=== PATIENT | female | born 1955 | race Caucasian/White ===

== ENCOUNTER 2021-05-30 09:32 | Inpatient (IN) | payer MEDICARE ==
[~2021-05-30] VITALS: Ht 170.2 cm; Wt 100.5 kg
[~2021-05-30 09:32] MED LIST: Roxicodone5 MG PO
[2021-05-30 12:51] LABS: BASOPHILS ABSOLUTE AUTO 0.03 K/mm3 (0.00-0.23); BASOPHILS PERCENT AUTO 1 % (0-2); EOSINOPHILS ABSOLUTE AUTO 0.03 K/mm3 (0.00-0.68); EOSINOPHILS PERCENT AUTO 1 % (0-6); Hematocrit 47.5 % (33.0-51.0); Hemoglobin 16.5 g/dL (11.5-16.0); IMMATURE GRAN ABSOLUTE AUTO 0.03 K/mm3 (0.00-0.10); IMMATURE GRAN PERCENT AUTO 1 % (0-1); LYMPHOCYTES ABSOLUTE AUTO 1.15 K/mm3 (0.84-5.20); LYMPHOCYTES PERCENT AUTO 18 % (21-46); MONOCYTES ABSOLUTE AUTO 0.55 K/mm3 (0.16-1.47); MONOCYTES PERCENT AUTO 8 % (4-13); Mean Corpuscular HGB 33.5 pg (26.0-34.0); Mean Corpuscular HGB Conc 34.7 g/dL (31.5-36.5); Mean Corpuscular Volume 96 fL (80-100); NEUTROPHILS ABSOLUTE AUTO 4.78 K/mm3 (1.96-9.15); NEUTROPHILS PERCENT AUTO 73 % (41-73); RDW Coefficient Variation 13.8 % (11.7-14.2); RDW Standard Deviation 49.9 fL (35.1-46.3); Red Blood Cell Count 4.93 M/mm3 (3.80-5.20); White Blood Cell Count 6.57 K/mm3 (4.00-11.30)
[2021-05-30 12:54] LABS: Alanine Aminotransfer (ALT/SGP 28 U/L (12-78); Albumin, Blood 4.1 g/dL (3.4-5.0); Albumin/Globulin Ratio 1.1 (0.8-1.8); Alk Phos 91 U/L (50-136); Anion Gap 10 mmol/L (6-16); Aspartate Aminotrans (AST/SGOT 47 U/L (12-37); Bilirubin, Total 1.9 mg/dL (0.1-1.0); Blood Urea Nitrogen 18 mg/dL (8-24); Bun/Creatinine Ratio 23.7 (12.0-20.0); CO2, Blood 25 mmol/L (21-32); Calcium, Blood 9.9 mg/dL (8.5-10.1); Chloride, Blood 98 mmol/L (98-108); Creatinine, Blood 0.76 mg/dL (0.40-1.00); Globulin, Blood 3.9 g/dL (2.2-4.0); Glomerular Filtration Rate >60 (60-); Glucose, Blood 136 mg/dL (70-99); Potassium, Blood 4.1 mmol/L (3.5-5.5); Sodium, Blood 133 mmol/L (136-145)
[2021-05-30 13:11] LABS: Platelet Count 194 K/mm3 (150-400)
[2021-05-30 13:11] LABS: Influenza A, PCR NEGATIVE (NEGATIVE); Influenza B, PCR NEGATIVE (NEGATIVE); Resp Syncytial Virus, PCR NEGATIVE (NEGATIVE); SARS-Cov-2 (COVID-19) PCR, MMC NEGATIVE (NEGATIVE)
--- NOTE | 2021-05-30 16:54 | NUR ---
PT. ADMITTED TO ROOM #215 AT 1545 FROM ER VIA RNEY. ABLE TO GET INTO BED, MOVES VERY SLOWLY AND CAREFULLY DUE TO LEFT ARM DISCOMFORT. SLING IN PLACE. CMS INTACT LEFT HAND , L ARM BRUISING ON SHOULDER, UPPPER ARM AND SHOULDER SHAPE CHANGES PT. MOVES. RATED PAIN 6/10, ROXICODONE GIVEN ALONG WITH LOPRESSOR. UPON ARRIVAL BP 180/137 HR 113. ANOTHER BP DONE AND 150OVER 134, HR 110. AFTER LOPRESSOR AND SINDHU GIVEN PT. BLOOD PRESSURE NOW 147/110, HR 92, PAIN IS 3/3 AND AT AN ACCEPTABLE LEVEL. IV R AC PATENT AND FLUSHES EASILY, DRSG. INTACT. DISCUSSED MEDICAL HX WITH PATIENT, STATES SHE KNOWS HER BLOOD PRESSURE IS HIGH AND IRREGULAR BUT HAS NOT BEEN TAKING ANY MEDICATION. SHE STATES SHE QUIT SMOKING THIS LAST APR 2021. PATIENT EDUCATION ON BLOOD PRESSURE AND IMPORTANCE OF TAKING PRESCRIBED MEDICATION. PATIENT VERBALIZE UNDERSTANDING.
[2021-05-31 05:10] LABS: Hematocrit 42.4 % (33.0-51.0); Hemoglobin 14.6 g/dL (11.5-16.0); Mean Corpuscular HGB 33.9 pg (26.0-34.0); Mean Corpuscular HGB Conc 34.4 g/dL (31.5-36.5); Mean Corpuscular Volume 98 fL (80-100); Mean Platelet Volume 9.9 fL (9.1-12.4); Platelet Count 200 K/mm3 (150-400); RDW Coefficient Variation 13.5 % (11.7-14.2); RDW Standard Deviation 49.2 fL (35.1-46.3); Red Blood Cell Count 4.31 M/mm3 (3.80-5.20); White Blood Cell Count 6.15 K/mm3 (4.00-11.30)
--- NOTE | 2021-05-31 05:22 | NUR ---
SHIFT SUMMARY PT ER ADMIT YESTEDAY AFTERNOON FOR LEFT HUMERAL FRACTURE AFTER SUSTAINING GLF AT HOME AFTER TRIPPING OVER A RUG. LEFT SHOULDER IS SEVERELY BRUISED AND DISCOLORED. ARM IS IN SLING, PT DENIES N/T IN LUE. PAIN WELL CONTROLED WITH OXYCODONE AND TYLENOL. MEDICATED X1 FOR NAUSEA. PT HYPETENSIVE, BUT VITALS THIS SHIFT HAVE NOT BEEN OUTSIDE OF PT NORM. ATTENDING AWARE OF PT HYPERTENSION PER NOTES. PT AFIB ON TELE, RATE CONTROLLED. ORTHO TO CONSULT ON PT TODAY, POSSIBLE SURGERY. PT HAS BEEN NPO SINCE MIDNIGHT. IVF INFUSING, BED IN LOWEST POSITION, CALL LIGHT WITHIN REACH.
[2021-05-31 05:43] LABS: Anion Gap 9 mmol/L (6-16); Blood Urea Nitrogen 24 mg/dL (8-24); Bun/Creatinine Ratio 36.5 (12.0-20.0); CO2, Blood 24 mmol/L (21-32); Calcium, Blood 9.1 mg/dL (8.5-10.1); Chloride, Blood 99 mmol/L (98-108); Creatinine, Blood 0.66 mg/dL (0.40-1.00); Glomerular Filtration Rate >60 (60-); Glucose, Blood 115 mg/dL (70-99); Potassium, Blood 3.5 mmol/L (3.5-5.5); Sodium, Blood 132 mmol/L (136-145)
--- NOTE | 2021-05-31 10:54 | NUR ---
Pt. is sitting up in chair and joyfully welcomes my visit. Facilitate a life review and consider pts. blair background. Pt. is interested in the Advance Directive Info material. As rapport was being devloped, spouse arrived. Talked through the material. Pt. and spouse randy displayed evidence of interest and agreement with the process. Pt. verbalized gratitude for the accident as it will force her to consider making better life/health choices. Listen empathetically. Prayed with with Pt. and Spouse. Pt. verbalized gratitude for the prayer and the spiritual care visit.
--- NOTE | 2021-05-31 15:44 | NUR ---
DR. MARTINEZ IN TO SEE PT. TODAY. NO SURGERY SCHEDULED. PATIENT EATING AND IS NO LONGER NPO. DR. OCONNELL INSTRUCTED TO STOP IVF WHILE PT. EATING/DRINKING. IS TO BE NPO AFTER MN TONIGHT UNTIL DR. HERRERA SEE PT. TOMORROW. IN TO VISIT PT. TODAY. STATES ONE ROXICODONE EFFECTIVE FOR L ARM RELIEF. STATES HER LEFT HAND IS "MOVING BETTER" TODAY. CMS INTACT.
--- NOTE | 2021-05-31 22:29 | NUR ---
TELE CHANGES CALL FROM [employer] AROUND 2200 THAT PT HAD A 7 BEAT RUN OF V-TACH WITH A RATE OF 170. PT WAS JUST SITTING UP IN BED WATCHING TV WITHOUT DISTRESS. CALL FROM [employer] AGAIN SHORTLY AFTER THAT PT HAD SOME ST CHANGES. PT IS DENYING CHEST PAIN OR PRESSURE. NO NAUSEA OR VOMITTING. EKG PERFORMED. DR. DILLON CALLED AND NOTIFIED OF TELE CHANGES AND EKG RESULTS. ORDER RECEIVED FOR 25 MG OF METOPROLOL BID, START FIRST DOSE NOW AND TROPONIN. ORDERS PLACED. WILL CONTINUE TO MONITOR.
--- NOTE | 2021-06-01 04:07 | NUR ---
SHIFT SUMMARY PT IS GETTING A SECOND OPINION FROM DR. MATA TODAY AFTER SPEAKING WITH DR. MARTINEZ YESTERDAY. THERE IS NO SCHEDULED SURGERY AT THIS TIME. PT HAS BEEN NPO SINCE MIDNIGHT JUST IN CASE OF SURGERY TODAY. PT LEFT ARM REMAINS SPLINTED. BRUISING TO LEFT SHOULDER HAS IMPROVED SOME, PAIN WITH MOVEMENT. MEDICATED PER EMAR. PT DENIES N/T IN LUE. ARMS REMAINS SPLINTED. PT DID HAVE SOME CHANGES ON TELE THIS SHIFT. ST CHANGES PER WHITING MACHINE OPERATOR KALEN, WELL A 6 BEAT RUN OF VTACH RATE 170'S. PT ASYMPTOMATIC, DENIES CHEST PAIN. EKG DONE, AND TROPONIN ORDERED. TROPONIN WNL. DR. DILLON WAS MADE AWARE OF TELE CHANGES AND CONTINUED HYPERTENSION. PT VERY ANXIOUS ABOUT CURRENT ILLESS, SUPORT PROVIDED. PT CONTINUES TO AMBULATE WELL WITH 1 PA TO THE BSC. BED IN LOWEST POSITION, CALL LIGHT WITHIN REACH.
[2021-06-01 04:54] LABS: Hematocrit 44.3 % (33.0-51.0); Hemoglobin 15.2 g/dL (11.5-16.0); Mean Corpuscular HGB 33.7 pg (26.0-34.0); Mean Corpuscular HGB Conc 34.3 g/dL (31.5-36.5); Mean Corpuscular Volume 98 fL (80-100); Mean Platelet Volume 9.6 fL (9.1-12.4); Platelet Count 220 K/mm3 (150-400); RDW Coefficient Variation 13.4 % (11.7-14.2); RDW Standard Deviation 48.8 fL (35.1-46.3); Red Blood Cell Count 4.51 M/mm3 (3.80-5.20); White Blood Cell Count 7.14 K/mm3 (4.00-11.30)
[2021-06-01 05:15] LABS: Anion Gap 9 mmol/L (6-16); Blood Urea Nitrogen 22 mg/dL (8-24); Bun/Creatinine Ratio 30.3 (12.0-20.0); CO2, Blood 25 mmol/L (21-32); Calcium, Blood 9.4 mg/dL (8.5-10.1); Chloride, Blood 99 mmol/L (98-108); Creatinine, Blood 0.73 mg/dL (0.40-1.00); Glomerular Filtration Rate >60 (60-); Glucose, Blood 132 mg/dL (70-99); Potassium, Blood 3.9 mmol/L (3.5-5.5); Sodium, Blood 133 mmol/L (136-145)
--- NOTE | 2021-06-01 10:27 | NUR ---
PT SBP IN 200'S. INSERTED NEW IV SINCE OLD ONE WAS INFILTRATED AND GAVE IV LABETOLOL. WILL RECHECK IN 30 MINS. PT C/O GAS, EPIGASTRIC PAIN, AND NAUSEA. DENIES CHEST PAIN/PRESSURE/PALPITATIONS. AFLUTTER IN 90'S ON TELE.
--- NOTE | 2021-06-01 15:03 | NUR ---
PT ARRIVED TO ICU 11 VIA WC. PT ABLE TO TRANSFER SELF TO BED WITH 1 PERSON ASSISTANCE, BUT REQUIRES 2 PERSON ASSISTANCE TO GET FEET INTO BED AND MOVE AROUND. PT HAS SIGNIFICANT L ARM PAIN WHEN MOVING AROUND. PT HAS SLING VERY LOOSELY ON L ARM AND THE ARM DOES NOT APPEAR STABLE WITH BULGES APPEARING PT MOVES. L ARM IS SWOLLEN AND PURPLE. L FINGERS ARE PINK, WARM, RADIAL PULSE STRONG. DR. OCONNELL CALLED FOR PAIN AND ANXIETY CONTROL PT SAYS SHE USED TO TAKE XANAX FOR ANXIETY. PT'SSBP CAME DOWN TO THE 180S WITH FENTANYL ADMIN AND PT SAID HER NAUSEA FELT BETTER AT THAT POINT. PT'S PAIN AND BP WENT BACK UP SOON SHE MOVED. CALLED DR. MATA TO SEE ABOUT STABILIZING PT'S ARM AND HE SAID HE WOULD COME BY AND PUT ON A SPLINT. PT VERY ANXIOUS ABOUT THIS SO ATIVAN GIVEN AND PT RELAXED, BUT SBP STILL 224MMHG. GEE MARTINEZ PLACING POWERGLIDE CURRENTLY AND THEN WILL START NICARDIPINE. PT'S AT THE BEDSIDE AND HAS BEEN VERY SUPPORTIVE.
--- NOTE | 2021-06-01 17:06 | NUR ---
SHIFT SUMMARY PT WAS TRANSFERRED TO ICU TODAY FOR BP CONTROL. DR. MATA CAME BY AND PLACED SPLINT ON LA AND PT HAS BEEN MUCH MORE COMFORTABLE SINCE. SBP HAS BEEN 150-170S, BUT DIASTOLIC HAS REMAINED AROUND 130MMHG. SPOKE WITH DR. OCONNELL WHO GAVE ORDER FOR THE NICARDIPINE TO BE GIVEN FOR SBP ABOVE 180MMHG AND TO ADD LISINOPRIL FOR THE DIASTOLIC, SEE ORDERS. HR IN THE 90-LOW 100S, AFIB. PT IS STILL HAVING SOME NAUSEA. SHE IS TOELRATING WATER, TRIED SIPS OF BROTH AND CRACKERS. LUNGS ARE CLEAR, RA. L ARM HAS 2+ EDEMA AND ARM IS PURPLE. PT'S SPENT MOST OF THE TIME AT THE BEDSIDE, BUT HAS NOW TAKEN A BREAK SO PT CAN REST. CONTINUING TO MONITOR.
--- NOTE | 2021-06-01 17:55 | NUR ---
Pt. is awake and in bed. Pt. welcomes my visit. Re-establish rapport. Pt. is pleasant, and reflected on some moments of fear she experienced overnight. Listen empathetically. Through pastoral care and therapeutic questioning, pt. displayed evidence of renewed hope and restored blair. Prayed with Pt. Pt. verbalized gratitude for the spiritual care visit and requested that this anthropology department chair return.
--- NOTE | 2021-06-01 20:55 | NUR ---
SHIFT ASSESSMENT PT ALERT AND ORIENTED, SITTING UPRIGHT IN BED. A-FIB ON THE MONITOR. PT REMAINS HYPERTENSIVE, NICARDIPINE GTT TITRATED DOWN TO 3MG/HR c SBP <180 AT THIS TIME. PT C/O MODERATE PAIN IN THE L ARM AND NAUSEA, MEDICATED WITH PRN ZOFRAN AND PO PAIN MEDS. L SLING PLACED OVER SPLINT. L ARM REMAINS DISCOLORED AND SWOLLEN, STRONG RADIAL PULSE, SENSATION OF DISTAL EXTREMITIES INTACT. PT TO BEDSIDE COMMODE WITH TAX INTERN. WILL CONTINUE TO MONITOR CLOSELY.
--- NOTE | 2021-06-02 07:29 | NUR ---
SHIFT SUMMARY PT REMAINS ALERT AND ORIENTED. ABLE TO SLEEP FOR PART OF THE NIGHT. NICARDIPINE GTT ON T/O THE NIGHT, CURRENTLY AT 3MG/HR. NO CHANGES TO STATUS OF L ARM, REMAINS SWOLLEN AND DISCOLORED, NO LOSS OF SENSATION. SLING AND SPLINT IN PLACE. PT TOLERATING USE OF BEDSIDE COMMODE, DENIES DIZZINESS, JUST NEEDS REMINDING TO NOT USE L ARM. NO OTHER ACUTE CHANGES, REPORT GIVEN TO ONCOMING NURSE.
--- NOTE | 2021-06-02 08:05 | NUR ---
took over care of pt at 0700, pt resting on RA, nicardicpine drip running at 2.5
--- NOTE | 2021-06-02 18:02 | NUR ---
SHIFT SUMMARY PT ARRIVED TO THE FLOOR VIA WC IN STABLE CONDITION FROM ICU 11, VSS UPON ARRIVAL, DENIED PAIN AT THAT TIME, REPORTED SOME MILD TINGLING IN L HAND BUT STATED THAT WAS NORMAL FOR HER. DISTAL CIRCULATION L HAND GOOD, CAP REFIL < 3 SECONDS, PULSE PRESENT. NO ACUTE EVENTS SINCE ARRIVAL, WILL CTM AND REPORT TO NOC RN.
--- NOTE | 2021-06-03 06:26 | NUR ---
SHIFT SUMMARY PT AOX4. ADMITTED FOR NONSURGICAL LEFT HUMERUS FX. TRANSFERED FROM ICU DUE TO HTN AND AFIB. PT'S BP IS WELL CONTROLLED OVERNIGHT. MILDLY ELEVATED AT THE BEGINNING OF SHIFT. MEDICATED FOR PRN LOPRESSOR 12.5MG. BP IMPROVED THIS MORNING. PT DENIES CHEST PAIN AND SOB. L ARM WITH SLING AND EFREN WRAPPED. L HAND REMAIN SWOLLEN OVERNIGHT BUT PT DENIES NUMBNESS AND TINGLING. CAP REFILL AT 3SEC.D PULSES IS STRONG. ABLE TO MOVE L FINGERS/HAND. AMBULATES IN THE BATHROOM WITH SBA. PT HAS BEEN STEADY GETTING UP DENIES DIZZINESS/LIGHT-HEADEDNESS. PT ALSO TOLERATING PO INTAKE. DECREASE APPETITE, FELT MILDLY NAUSEATED AT THE BEGINNING OF SHIFT. OFFERED ZOFRAN BUT PT REFUSED. NO NAUSEA NOTED AFTER 1 EPISODE. TELE IN PLACED REMAINED AFIB ON 90'S. CALL LIGHT WITHIN REACH. WILL PROVIDE REPORT TO ONCOMING NURSE.
--- NOTE | 2021-06-03 15:37 | NUR ---
SHIFT SUMMARY S/P L HUMERAL FX, A/OX4, VSS, TOLERATING PO, PAIN MANAGED PER EMAR, AMBULATES INDEPENDENTLY, UPDATED IMAGING ORDERED FOR L ARM PER ORTHO, PT HAD SOME MILD NAUSEA JUST PRIOR TO SHIFT START WHICH RESOLVED WITHOUT MEDICATIONS PT STATED SHE DIDN'T WANT ANY AT THAT TIME, DENIED NAUSEA T/O THIS SHIFT. NO ACUTE EVENTS TODAY, CALL LIGHT IN REACH, WILL CTM AND REPORT TO ONCOMING NOC RN.
--- NOTE | 2021-06-04 03:26 | NUR ---
SHIFT SUMMARY: PT. AOX4, AMBULATES TO THE BATHROOM ON SBA. L ARM WITH ORTHO GLASS & ACEWRAP C/D/I. USES SLING WHEN UP. C/O PAIN MEDICATED PER EMAR. SLEEPING WELL, NO ACUTE CHANGES NOTED. ABLE TO MAKE NEEDS KNOWN, USES CALL LIGHT.
--- NOTE | 2021-06-04 18:35 | NUR ---
PATIENT ATE 100% DINNER AND BROTHER BILL IN TO VISIT FOR 10 MINUTES. PATIENT STATES HE IS READY TO GO HOME. EXPLAINED TO PATIENT THAT A DOCTOR WILL BE IN TO SEE HIM . WATCHING TV AT THIS TIME.
--- NOTE | 2021-06-04 18:38 | NUR ---
PATIENT UP IN CHAIR MOST OF DAY. REQUEST PAIN MED AT 1000 THIS A.M. AND AT THIS TIME NOW. LEFT HAND SWOLLEN, NO CHANGE, DR. PAUL. IN TO VISIT TODAY. MOVED TO ROOM 217 AT AROUND 1700.BELONGINGS SENT WITH PATIENT.
--- NOTE | 2021-06-05 03:27 | NUR ---
SHIFT SUMMARY: PT.AOX4, C/O PAIN MEDICATED PER EMAR. AMBULATES TO BATHROOM ON SBA. L ARM WITH ORTHO GLASS & ACEWRAP PLACED ON PILLOW WHEN IN BED, SLING ON WHEN UP. NO ACUTE CHANGES NOTED, WILL CONTINUE TO MONITOR.
[2021-06-05] MEDS ORDERED: OXYC5 PO (11:04)
[2021-06-05] MEDS ORDERED: DOCUZEN 8.6-501 EACH PO (11:05)
[2021-06-05] MEDS ORDERED: Acetaminophen650 M1 PO (11:05)
[2021-06-05] MEDS ORDERED: HYDCHL25 PO (11:06)
[2021-06-05] MEDS ORDERED: LISI20 PO (11:06)
[2021-06-05] MEDS ORDERED: METO50ER PO ×2 (11:07→11:12)
[2021-06-05] MEDS ORDERED: LORA.5 PO (11:07)
[2021-06-05] MEDS ORDERED: VITAMIN D5000 UNIT PO (11:08)
[2021-06-05] MEDS ORDERED: MIRALAX1711 PO (11:08)
[2021-06-05] MEDS ORDERED: XARELTO20 MG PO (11:09)
[2021-06-05] MEDS ORDERED: LISINOPRIL-HCT1 EACH PO (11:12)
--- NOTE | 2021-06-05 13:24 | NUR ---
DC'D HOME, DC INSTRUCTIONS GIVEN, VERBALIZED UNDERSTANDING, PT DC'D W/ ARM IN SLING.
--- NOTE | 2021-06-06 14:02 | NUR ---
Received referral from nurse wound care center consultant (Rosette Aguilar) on 06/05/2021. Patient was admitted to [facility] on 05/30/2021 due to left humeral fracture. Patient discharged 06/05/2021 with orders for home health and elected [place]. Attempted to reach patient on 06/05/2021 at 1529. Unfortunately patient did not answer. Left voicemail asking patient to return this proposal lead writer's call. Second attempted to reach patient on at 1040. Unfortunately patient did not answer. Left voicemail asking patient to return this proposal lead writer's call. Third and final attempted to reach patient on 06/06/2021 at 1400. Unfortunately patient did not answer. Left voicemail asking patient to return this proposal lead writer's call. No further interventions required. Bailey Malhotra Referral Liaison
[2021-06-08] MEDS ORDERED: LISI20 PO (12:46)
[2021-06-08] MEDS ORDERED: AMOCLA875 PO (12:48)
[2021-06-08] MEDS ORDERED: VISBIOME 112.51 EACH PO (12:48)
[2021-06-08] MEDS ORDERED: Percocet 5-3251 EACH PO (12:49)
== END 2021-06-05 13:15 | disposition home health service (06) | DRG 563 ==
LOC: ER 09:32 → ICUW 14:29 → SURS 14:29 → ICUW 06-01 13:36 → SURS 06-02 16:23
PROVIDERS: Internal Medicine; Nurse Practitioner Acute Care; Physician Assistant; ADMIT Internal Medicine
DX: S42.292A Other displaced fracture of upper end of left humerus, initial encounter for closed fracture (principal); Z20.822 Contact with and (suspected) exposure to COVID-19; I48.91 Unspecified atrial fibrillation; E66.01 Morbid (severe) obesity due to excess calories; F41.9 Anxiety disorder, unspecified; Z68.39 Body mass index [BMI] 39.0-39.9, adult; I10 Essential (primary) hypertension; Z91.14 Patient's other noncompliance with medication regimen; Z28.21 Immunization not carried out because of patient refusal; Z88.5 Allergy status to narcotic agent; Z87.891 Personal history of nicotine dependence; W19.XXXA Unspecified fall, initial encounter
CPT/HCPCS: 0241U; 36415; 71046; 73060; 80048; 80053; 83036; 83690; 83735; 83880; 84443; 84484; 85025; 85027; 93005; 93010; 93306; 96374; 99284-25; A9270; C1751; C9113; J2060; J2405; J3010; J7030; J7050

== ENCOUNTER 2023-12-26 10:39 | Inpatient (IN) | payer OTHER ==
[~2023-12-26] VITALS: Ht 170.2 cm; Wt 103.4 kg
[2023-12-26] VITALS (26 sets, daily range): BP systolic 67–115; BP diastolic 38–86
[~2023-12-26 10:39] MED LIST changes: +AMOCLA875 PO; +Acetaminophen650 M1 PO; +Ativan0.5 MG PO; +DOCUZEN 8.6-501 EACH PO; +HYDCHL25 PO; +LISI20 PO; +LISINOPRIL-HCT1 EACH PO; +LORA.5 PO; +METO50ER PO; +MIRALAX1711 PO; +OXYC5 PO; +Percocet 5-3251 EACH PO; +VISBIOME 112.51 EACH PO; +VITAMIN D5000 UNIT PO; +XARELTO20 MG PO
[2023-12-26] MEDS ORDERED: NS 1,000 ML IV ONE ×3 (11:05→14:50)
[2023-12-26] MEDS ORDERED: Piperacillin/Tazobactam Sod 3.375 GM in NS 100 ML IV ONE (11:55)
[2023-12-26] MEDS ORDERED: Vancomycin HCL 2,000 MG in NS 520 ML IV ONE (11:55)
[2023-12-26 12:05] LABS: Source, Urine Foley catheter
[2023-12-26 12:07] LABS: Appearance, Urine Clear (Clear); Bilirubin, Urine Neg (Neg); Blood, Urine Neg (Neg); Color, Urine Yellow (P-Yellow); Glucose Qualitative, Urine Neg (Neg); Ketones, Urine Neg (Neg); Leukocyte Esterase, Urine Neg (Neg); Nitrite, Urine Neg (Neg); Protein, Urine 2+ (Neg); Urobilinogen, Urine NORM (Normal)
[2023-12-26 12:21] LABS: Magnesium, Blood 2.3 mg/dL (1.6-2.4)
[2023-12-26 12:29] LABS: Albumin, Blood 2.9 g/dL (3.4-5.0); Albumin/Globulin Ratio 0.8 (0.8-1.8); Bilirubin, Total 1.3 mg/dL (0.1-1.0); Bun/Creatinine Ratio 45.1 (12.0-20.0); Calcium, Blood 8.5 mg/dL (8.5-10.1); Creatinine, Blood 1.82 mg/dL (0.40-1.00); Globulin, Blood 3.5 g/dL (2.2-4.0); Total Protein, Blood 6.4 g/dL (6.4-8.2)
[2023-12-26 12:30] LABS: Bacteria Rare /hpf; Red Blood Cells, Urine 0-2 /hpf (0-2); Squamous Epithelial Cells Few /hpf (Few); White Blood Cells, Urine 0-2 /hpf (0-5)
[2023-12-26] MEDS ORDERED: NS 1,000 ML IV SCH ×2 (12:45→14:50)
[2023-12-26 12:47] LABS: BASOPHILS ABSOLUTE AUTO 0.01 K/mm3 (0.00-0.23); BASOPHILS PERCENT AUTO 0 % (0-2); EOSINOPHILS ABSOLUTE AUTO 0.05 K/mm3 (0.00-0.68); EOSINOPHILS PERCENT AUTO 1 % (0-6); Hematocrit 47.5 % (33.0-51.0); Hemoglobin 17.8 g/dL (11.5-16.0); IMMATURE GRAN ABSOLUTE AUTO 0.07 K/mm3 (0.00-0.10); IMMATURE GRAN PERCENT AUTO 1 % (0-1); LYMPHOCYTES ABSOLUTE AUTO 1.13 K/mm3 (0.84-5.20); LYMPHOCYTES PERCENT AUTO 12 % (21-46); MONOCYTES ABSOLUTE AUTO 0.74 K/mm3 (0.16-1.47); MONOCYTES PERCENT AUTO 8 % (4-13); Mean Corpuscular HGB 33.5 pg (26.0-34.0); Mean Corpuscular Volume 90 fL (80-100); Mean Platelet Volume 9.6 fL (9.1-12.4); NEUTROPHILS PERCENT AUTO 79 % (41-73); Platelet Count 239 K/mm3 (150-400); RDW Coefficient Variation 12.5 % (11.7-14.2); RDW Standard Deviation 41.3 fL (35.1-46.3); Red Blood Cell Count 5.31 M/mm3 (3.80-5.20)
[2023-12-26 12:48] LABS: Mean Corpuscular HGB Conc 37.5 g/dL (31.5-36.5)
[2023-12-26] MEDS ORDERED: Aspirin 325 MG Tab PO ONE (13:15)
[2023-12-26 14:22] LABS: Bun/Creatinine Ratio 44.1 (12.0-20.0); Calcium, Blood 8.2 mg/dL (8.5-10.1); Creatinine, Blood 1.79 mg/dL (0.40-1.00); Potassium, Blood 3.2 mmol/L (3.5-5.5)
[2023-12-26] MEDS ORDERED: Magnesium Hydroxide Conc 10 ML UDC PO PRN (14:45)
[2023-12-26] MEDS ORDERED: FLU VACC TS2024-25(6MOS UP)/PF 45 MCG/0.5 ML SYRINGE IM SCH (14:45)
[2023-12-26] MEDS ORDERED: Ondansetron HCl 2 MG / ML 2ML Vial IV PRN (14:50)
[2023-12-26] MEDS ORDERED: Cefepime HCl 2,000 MG in NS 100 ML IV ONE (15:30)
--- NOTE | 2023-12-26 18:49 | NUR ---
ADMIT PT ARRIVED TO PCU 20 VIA SILVANA. PT ALERT, ABLE TO SAY THAT SHE IS IN THE HOSPITAL, BUT WAS UNABLE TO SAY THE YEAR. SHE IS EASILY CONFUSED AND DISTRACTED. LATER, WHEN SETTLING THE PT AND SHE WAS ABLE TO FOCUS SHE WAS ABLE TO SAY THE YEAR IS 20[birth year]. WHEN ASKED ABOUT THE WOUNDS ON HER LEGS THOUGH, SHE SAYS THAT THEY WEREN'T THERE THIS MORNING. PICTURES TAKEN OF OPEN AREAS ON BOTH SHINS. BOTH LEGS ARE PURPLE AND MOTTLED UP TO MID THIGH. UNABLE TO FIND DORSALIS PEDIS PULSE WITH DOPPLER, BUT POSTERIOR TIBIAL PULSES FOUND BILATERALLY WITH DOPPLER. RUIZ IN PLACE DRAINING SILKE COLORED URINE. PT 100% ON 4L/NC SO TITRATED DOWN TO 2L/NC. WILL REPORT TO ONCOMING SHIFT.
[2023-12-26] MEDS ORDERED: Albuterol 2.5 MG/3 ML VIAL INH PRN (19:40)
[2023-12-26] MEDS ORDERED: Albuterol 2.5 MG/3 ML VIAL INH SCH (19:45)
[2023-12-26] MEDS ORDERED: Lactobacil 2-S.Thermo-Bifido 1 1 Cap PO SCH (21:00)
[2023-12-26 21:08] LABS: Bun/Creatinine Ratio 47.6 (12.0-20.0); Calcium, Blood 8.6 mg/dL (8.5-10.1); Creatinine, Blood 1.47 mg/dL (0.40-1.00); Potassium, Blood 2.8 mmol/L (3.5-5.5)
--- NOTE | 2023-12-26 21:25 | NUR ---
ICU Tx: PATIENT WITH CONSISTENT MAPS <60, SYSTOLIC BLOOD PRESSURES IN THE 70'S MOST OF THE TIME, PATIENT A/O X 2-3. MOTTLED LOWER EXTREMES TO THE LEVEL OF THE KNEE. PATIENT STILL PRODUCING URINE, MULTIPLE MANUAL BLOOD PRESSURE PREFORMED AND 70'S SYSTOLIC AVERAGES, RESIDENT TO BEDSIDE >30 MINUTES. FINAL OK TO TRANSFER TO ICU. BEDSIDE REPORT OBTAINED NO QUESTIONS OR CONCERNS FROM SMALL MACHINE BINDERY OPERATOR AT TIME OF REPORT. REVENUE FIELD AUDITOR AND I TRANSFERRED PATIENT VIA BED ON 2L NC
[2023-12-26] MEDS ORDERED: Potassium Chloride 40 MEQ IV ONE (22:00)
[2023-12-26] MEDS ORDERED: Potassium Chl 20MEQ/Water100ML 100 ML IV SCH (22:05)
--- NOTE | 2023-12-26 23:00 | NUR ---
PT TRANSFER TO ICU 12: PT ARRIVED TO THE UNIT APPRO. 2114; REPORT RECIEVED FROM OPTIMIZATION CONSULTANT, JANEY. PT ARRIVED A&O X 2, CONFUSED BUT FOLLOWING DIRECTIONS. PT ABLE TO STATE AND MONTH/YEAR BUT STATED THAT SHE WAS AT HOME AND IN [place], [place]. AT TIMES PT IS HAVING AUDITORY/VISUAL HALLUCINATIONS AND THINKS SHE IS HEARING/SEEING FAMILY MEMBERS OR FRIENDS IN THE ROOM AND PRECEEDS TO TALK TO THEM; PT REORIENTED BUT BECOMES CONFUSED SHORTLY AFTER. CURRENTLY ON NC @ 2 LPM, SPO2 96< AND C/O SLIGHT SOB. AFIB ON MONITOR WITH HR 80-100, SBP 90'S, AND MAP 65<; LEVO GTT @ 4 MCG/MIN. CENTRAL LINE ACCESS IN J THAT IS PATENT; NS INFUSING @ 150 MLS/HR. ABD OBESE, SOFT AND NON-TENDER, AND +BT; PT TOLERATING PO INTAKE AT THIS TIME. RADIAL PULSE PALPABLE, POSTERIOR TIBIAL WITH DOPPLER. CHRONIC BLE WOUNDS, MOTTLING FROM FEET TO KNEES AND SKIN COOL TO TOUCH. PT ABLE TO SMITH AND FEEL SENSATION IN BLE. PT C/O PAIN IN BLE BUT IS MANAGABLE WITHOUT MEDS. LAC AND LH PIV THAT ARE PATENT AND SALINE LOCKED. ORAL CARE COMPLETED; PT HAS UPPPER DENTURES BUT THEY ARE AT HOME. BED LOWERED, CALL LIGHT IN REACH.
[2023-12-27] VITALS (89 sets, daily range): BP systolic 67–159; BP diastolic 35–99
[2023-12-27 05:37] LABS: Bun/Creatinine Ratio 49.5 (12.0-20.0); Calcium, Blood 8.1 mg/dL (8.5-10.1); Creatinine, Blood 1.01 mg/dL (0.40-1.00); Magnesium, Blood 1.9 mg/dL (1.6-2.4); Potassium, Blood 3.1 mmol/L (3.5-5.5)
[2023-12-27 05:53] LABS: BASOPHILS ABSOLUTE AUTO 0.02 K/mm3 (0.00-0.23); BASOPHILS PERCENT AUTO 0 % (0-2); EOSINOPHILS ABSOLUTE AUTO 0.02 K/mm3 (0.00-0.68); EOSINOPHILS PERCENT AUTO 0 % (0-6); Hematocrit 41.2 % (33.0-51.0); IMMATURE GRAN ABSOLUTE AUTO 0.07 K/mm3 (0.00-0.10); IMMATURE GRAN PERCENT AUTO 1 % (0-1); LYMPHOCYTES ABSOLUTE AUTO 0.68 K/mm3 (0.84-5.20); LYMPHOCYTES PERCENT AUTO 7 % (21-46); MONOCYTES ABSOLUTE AUTO 0.72 K/mm3 (0.16-1.47); MONOCYTES PERCENT AUTO 7 % (4-13); Mean Corpuscular Volume 90 fL (80-100); Mean Platelet Volume 9.5 fL (9.1-12.4); NEUTROPHILS ABSOLUTE AUTO 8.86 K/mm3 (1.96-9.15); NEUTROPHILS PERCENT AUTO 85 % (41-73); Platelet Count 211 K/mm3 (150-400); RDW Coefficient Variation 12.7 % (11.7-14.2); RDW Standard Deviation 42.2 fL (35.1-46.3); Red Blood Cell Count 4.58 M/mm3 (3.80-5.20); White Blood Cell Count 10.37 K/mm3 (4.00-11.30)
[2023-12-27 05:55] LABS: Hemoglobin 15.6 g/dL (11.5-16.0); Mean Corpuscular HGB 33.9 pg (26.0-34.0); Mean Corpuscular HGB Conc 37.1 g/dL (31.5-36.5)
[2023-12-27] MEDS ORDERED: Potassium Chl 20MEQ/Water100ML 100 ML IV STA (06:31)
--- NOTE | 2023-12-27 06:31 | NUR ---
SHIFT SUMMARY: NO ACUTE CHANGES OVERNIGHT; VSS THROUGHOUT THE NIGHT. PT REMAINS ON NC @ 2LPM. LEVO GTT @ 4 MCG/MIN. PT CONTINUES TO BE A&O X 2, CONFUSED BUT COOPERATIVE WITH CARE. GOOD URINE OUTPUT. NS @ 150 MLS/HR INFUSING THROUGH LIJ. BED LOWERED, CALL LIGHT IN REACH.
[2023-12-27] MEDS ORDERED: Potassium Chloride 20 MEQ TabCR PO ONE (08:00)
[2023-12-27] MEDS ORDERED: Cefepime HCl 2,000 MG in NS 100 ML IV SCH ×2 (08:00)
--- NOTE | 2023-12-27 08:07 | NUR ---
AM NOTE... ASSUMED CARE OF PT AT 0700, PT IS A&Ox4 WHICH IS IMPROVED FROM NOC SHIFT RN REPORT. PT WAS ON LEVOPHED AT 4MCG/MIN TO KEEP MAPS>65 THIS WAS TITRATED OFF BY 0800. PT WAS ON 2L NC WITH O2 SATS>95% THIS WAS ALSO TITRATED OFF BY 0800. PT IS IN AFIB IN THE 80'S-90'S. THE PT'S BLE ARE BRIGHT RED WITH DUSKY NAIL BEDS, BLE ARE WARM TO THE TOUCH WITH MOTTLING UP HER BLE TO HER UPPER THIGHS. LEFT D. PEDIS PULSE FOUND WITH DOPPLER, LEFT P. TIBIAL ABSENT. RIGHT D. PEDIS ABSENT RIGHT P. TIBIAL FOUND WITH DOPPLER. PT'S L/S SLIGHTLY COARSE IN THE UPPER LOBES DIM T/O. PT C/O OF "SLIGHT DISCOMFORT" TO HER BLE BUT DENIES PAIN. 0800 DR. VALENCIA AT THE BEDSIDE TO ASSESS THE PT, NEW ORDERS FOR NPO AND DR. PANTOJA CONSULT. WILL CONTINUE TO MONITOR.
[2023-12-27 11:48] LABS: Bun/Creatinine Ratio 47.2 (12.0-20.0); Calcium, Blood 7.9 mg/dL (8.5-10.1); Creatinine, Blood 0.89 mg/dL (0.40-1.00); Potassium, Blood 3.4 mmol/L (3.5-5.5)
[2023-12-27] MEDS ORDERED: Thiamine HCl 100 MG in NS 50 ML IV SCH (12:00)
[2023-12-27] MEDS ORDERED: Vancomycin HCL 1,250 MG in NS 250 ML IV SCH (12:00)
[2023-12-27] MEDS ORDERED: Heparin Sodium 1000 Units/ML 10ML MDV ONE ×2 (14:40→16:00)
[2023-12-27] MEDS ORDERED: NS 250 ML IV ONE (14:41)
[2023-12-27] MEDS ORDERED: NS 1,000 ML IV ONE ×2 (14:41→15:06)
[2023-12-27] MEDS ORDERED: NS 500 ML IV ONE (14:41)
[2023-12-27] MEDS ORDERED: Midazolam HCl 1MG / ML 2ML Vial ONE (15:06)
[2023-12-27] MEDS ORDERED: FentaNYL Citrate 50 MCG/ML 2 ML Injection ONE (15:06)
[2023-12-27] MEDS ORDERED: CEPH500 PO (15:27)
[2023-12-27] MEDS ORDERED: HydrALAZINE HCl 20 MG / ML 1ML Vial ONE (15:29)
[2023-12-27] MEDS ORDERED: METO50 PO (15:33)
[2023-12-27] MEDS ORDERED: NS 100 ML IV ONE (15:33)
[2023-12-27] MEDS ORDERED: SERT25 PO (15:34)
[2023-12-27] MEDS ORDERED: ENTRESTO 24 MG1 EACH PO (15:35)
[2023-12-27] MEDS ORDERED: WARF5 PO (15:35)
[2023-12-27] MEDS ORDERED: HYDCHL25 PO (15:36)
[2023-12-27] MEDS ORDERED: Nitroglycerin 2 MG/20 ML BTL ONE (15:38)
[2023-12-27] MEDS ORDERED: SILVADENE20 G8 TOP (15:39)
[2023-12-27 18:03] LABS: Albumin, Blood 2.6 g/dL (3.4-5.0); Anion Gap 14 mmol/L (3-11); Blood Urea Nitrogen 38 mg/dL (8-24); Bun/Creatinine Ratio 42.3 (12.0-20.0); CO2, Blood 20 mmol/L (21-32); Calcium, Blood 8.4 mg/dL (8.5-10.1); Chloride, Blood 99 mmol/L (98-108); Glomerular Filtration Rate 70 (60-); Glucose, Blood 125 mg/dL (70-99); Phosphorus, Blood 1.4 mg/dL (2.5-4.9); Potassium, Blood 3.6 mmol/L (3.5-5.5); Sodium, Blood 129 mmol/L (136-145)
[2023-12-27 18:09] LABS: Bun/Creatinine Ratio 42.6 (12.0-20.0); Calcium, Blood 8.4 mg/dL (8.5-10.1); Creatinine, Blood 0.89 mg/dL (0.40-1.00); Potassium, Blood 3.6 mmol/L (3.5-5.5)
--- NOTE | 2023-12-27 18:30 | NUR ---
SHIFT SUMMARY.... NO ACUTE NEGATIVE CHANGES NOTED THIS SHIFT. PT WENT TO THE [facility] AND RETURNED WITH A RIGHT GROIN SITE, THE SITE HAD A SMALL AMOUNT OF OOZING NOTED, NO HEMATOMA NOTED ON ASSESSMENT. WHEN THE PT RETURNED FROM THE FORKLIFT TRUCK MECHANIC PT'S HR INCREASED TO AFIB IN THE 100'S-120'S BP STABLE OFF OF LEVOPHED. RUIZ IS PATENT AND DRAINING TO GRAVITY. [facility] ONTINUE TO MONITOR UNTIL REPORT IS GIVEN TO ONCOMING RN.
[2023-12-27] MEDS ORDERED: Metoprolol Tartrate 1 MG/ML 5 ML VIAL IV PRN (19:30)
[2023-12-27] MEDS ORDERED: Sodium Phosphate 20 MM in NS 500 ML IV SCH (20:00)
[2023-12-27] MEDS ORDERED: Arginine/Glutamine/Calcium Hmb 1 Packet PO SCH (21:00)
[2023-12-27 23:25] LABS: Calcium, Blood 8.1 mg/dL (8.5-10.1); Creatinine, Blood 0.81 mg/dL (0.40-1.00); Potassium, Blood 3.6 mmol/L (3.5-5.5)
[2023-12-28] VITALS (64 sets, daily range): BP systolic 80–145; BP diastolic 38–112
[2023-12-28 04:26] LABS: BASOPHILS ABSOLUTE AUTO 0.01 K/mm3 (0.00-0.23); BASOPHILS PERCENT AUTO 0 % (0-2); EOSINOPHILS ABSOLUTE AUTO 0.09 K/mm3 (0.00-0.68); EOSINOPHILS PERCENT AUTO 1 % (0-6); Hematocrit 38.2 % (33.0-51.0); Hemoglobin 13.8 g/dL (11.5-16.0); IMMATURE GRAN ABSOLUTE AUTO 0.06 K/mm3 (0.00-0.10); IMMATURE GRAN PERCENT AUTO 1 % (0-1); LYMPHOCYTES ABSOLUTE AUTO 0.57 K/mm3 (0.84-5.20); LYMPHOCYTES PERCENT AUTO 7 % (21-46); MONOCYTES ABSOLUTE AUTO 0.75 K/mm3 (0.16-1.47); MONOCYTES PERCENT AUTO 9 % (4-13); Mean Corpuscular HGB 33.8 pg (26.0-34.0); Mean Corpuscular HGB Conc 36.1 g/dL (31.5-36.5); Mean Corpuscular Volume 94 fL (80-100); Mean Platelet Volume 9.8 fL (9.1-12.4); NEUTROPHILS ABSOLUTE AUTO 7.35 K/mm3 (1.96-9.15); NEUTROPHILS PERCENT AUTO 83 % (41-73); Platelet Count 166 K/mm3 (150-400); RDW Coefficient Variation 13.2 % (11.7-14.2); RDW Standard Deviation 45.3 fL (35.1-46.3); Red Blood Cell Count 4.08 M/mm3 (3.80-5.20); White Blood Cell Count 8.83 K/mm3 (4.00-11.30)
[2023-12-28 04:40] LABS: Bun/Creatinine Ratio 37.8 (12.0-20.0); Calcium, Blood 8.4 mg/dL (8.5-10.1); Creatinine, Blood 0.79 mg/dL (0.40-1.00); Phosphorus, Blood 2.1 mg/dL (2.5-4.9); Potassium, Blood 3.6 mmol/L (3.5-5.5)
[2023-12-28] MEDS ORDERED: Potassium Phosphate Dibasic 30 MM in Dextrose 5% 500 ML IV ONE (05:55)
--- NOTE | 2023-12-28 05:59 | NUR ---
SHIFT SUMMARY NO ACUTE CHANGES. RESTING QUIETLY WHEN UNDISTURBED. ORIENTED TO SELF AND TO THE FACT THAT SHE IS IN THE HOSPITAL. STILL ONLY ORIENTED TO YEAR. MOVES ALL EXTREMITIES. REMAINS IN AFIB, RATE NOW 90s-100s. LOPRESSOR 5MG IV X 1 GIVEN EARLIER FOR AFIB WITH RVR WITH GOOD RESULTS. LEVOPHED INFUSING AT 1MCG/MIN TO MAINTAIN MAP >65. TMAX 99.7F. MOIST, NON-PRODUCTIVE COUGH CONTINUES. RA SATS STABLE. RESPIRATIONS SHALLOW AND TACHYPNEIC AT TIMES, BUT UNLABORED. TOLERATING SIPS OF WATER. RUIZ PATENT AND DRAINING TO GRAVITY. BLE WOUNDS UNCHANGED. BLE ARE REDDENED AND WARM. DP/PT PULSES WITH DOPPLER. PT HAS DENIED C/O PAIN WHEN ASKED, BUT LEGS ARE TENDER WITH TOUCH/MOVEMENT. LIJ CENTRAL LINE PATENT. NS AT 150MLS/HR PER ORDER. PLAN OF CARE ONGOING.
[2023-12-28] MEDS ORDERED: Potassium Phosphate Dibasic 20 MM in Dextrose 5% 500 ML IV STA (08:01)
[2023-12-28] MEDS ORDERED: Midodrine 5 MG Tab PO SCH (09:00)
[2023-12-28] MEDS ORDERED: Ipratropium/Albuterol SulF 2.5-0.5MG/3 ML Amp INH SCH (09:10)
[2023-12-28] MEDS ORDERED: PredniSONE 20 MG Tab PO SCH (10:00)
[2023-12-28] MEDS ORDERED: LORazepam 2 MG/ML 1ML Injection IV ONE (11:00)
[2023-12-28 11:21] LABS: Vancomycin, Trough 12.2 ug/mL (5.0-10.0)
--- NOTE | 2023-12-28 12:33 | NUR ---
ASSUMED CARE PT IS A&OX2, INCREASED CONFUSION THIS AM. PT IS TREMULOUS. HAS HX ON DRINKING 3-4 GLASSES OF WINE DAILY BUT LAST DRINK WAS OVER 1 WEEK AGO PER HUSBNAD. PROVIDER MADE AWARE. ON CONTINUOUS CARDIAC MONITORING, AFIB W/ MAP > 65. LEVO ON SB WHEEZING HEARD T/O BOTH LUNGS. RT TO INITIATE SCHEDULED NEB TX. TOLERATING PO INTAKE. RUIZ PATENT AND DRAINING TO GRAVITY. FEMORAL SITE COVERED W/ CHG DRESSING, IN TACT. MOTTLING PRESENT ON BLE, WARM TO TOUCH. RIJ INFUSING. CALL LIGHT IN REACH.
[2023-12-28 16:03] LABS: International Normalized Ratio 1.94; Prothrombin Time Results 19.8 Sec (9.7-11.5)
[2023-12-28] MEDS ORDERED: Warfarin Sodium 7.5 MG Tab PO ONE (18:00)
[2023-12-28] MEDS ORDERED: Warfarin Sodium 4 MG Tab PO SCH (18:00)
--- NOTE | 2023-12-28 18:12 | NUR ---
SHIFT SUMMARY PT IS A&OX2, ANSWERS QUESTIONS APPROPRIATLY MOST OF THE TIME. INCREASED CONFUSION T/O THIS SHIFT, AT BEDSIDE STATED THIS IS INCREASED FROM HIS LAST VISIT. PROVIDER NOTIFIED. PT IS ALSO MILDLY TREMULOUS, IMPROVMENT FROM START OF SHIFT. PT IS ON ROOM AIR, SATS ARE IN THE 90'S. L/S COARSE AND WHEEZY T/O THIS SHIFT, SCHEDULED NEB TX BY RT HAVE HELPED. PT DESATS TO THE MID-80'S INTERMITTENTLY WHILE ASLEEP. ON CONTINUOUS PORTRAIT PHOTOGRAPHER, AFIB, HR IN THE 90-100'S. PT HAD A 14 BEAT RUN OF VTACH AROUND 1615 THIS SHIFT. DENIED CP/PRESSURE. SBP'S HAVE BEEN 110'S-140'S. MAPS > 65. TOLERATING PO INTAKE. RUIZ PATENT AND DRAINING TO GRAVITY. LIJ DRESSING CHANGED, C/D/I. DRESSING ON FEMORAL PUNCTURE SITE IS C/D/I. NO ACUTE EVENTS THIS SHIFT.
[2023-12-28] MEDS ORDERED: NS 250 ML IV PRN (19:40)
[2023-12-28] MEDS ORDERED: SILVER SULFADIAZINE 1% TOP SCH (21:00)
[2023-12-28] MEDS ORDERED: Silver Sulfadiazine 1% Cream 25 APPLIC/25 GM Tube TOP SCH (21:00)
[2023-12-28] MEDS ORDERED: Sacubitril/Valsartan 24 MG-26 MG Tab PO SCH (21:00)
[2023-12-29] VITALS (38 sets, daily range): BP systolic 117–197; BP diastolic 64–146
[2023-12-29] MEDS ORDERED: Vancomycin HCL 1,250 MG in NS 250 ML IV SCH
[2023-12-29] MEDS ORDERED: HydrALAZINE HCl 20 MG / ML 1ML Vial IV ONE (04:05)
--- NOTE | 2023-12-29 04:05 | NUR ---
HYPERTENSION BP 190s/120s. MANUAL BP CONFIRMS. PT IS SLIGHTLY TREMULOUS. STATES "I DO THIS WHEN I DON'T FEEL GOOD." ORIENTED TO SELF ONLY AT THIS TIME. SPEECH IS SLOW BUT IS CLEARER THIS AM. DR. DILLON NOTIFIED OF HYPERTENSION- NEW ORDER RECEIVED FOR HYDRALAZINE 10MG IV X 1.
[2023-12-29 04:15] LABS: BASOPHILS ABSOLUTE AUTO 0.01 K/mm3 (0.00-0.23); BASOPHILS PERCENT AUTO 0 % (0-2); EOSINOPHILS ABSOLUTE AUTO 0.03 K/mm3 (0.00-0.68); EOSINOPHILS PERCENT AUTO 0 % (0-6); Hematocrit 36.7 % (33.0-51.0); Hemoglobin 13.1 g/dL (11.5-16.0); IMMATURE GRAN ABSOLUTE AUTO 0.08 K/mm3 (0.00-0.10); IMMATURE GRAN PERCENT AUTO 1 % (0-1); LYMPHOCYTES ABSOLUTE AUTO 0.69 K/mm3 (0.84-5.20); LYMPHOCYTES PERCENT AUTO 10 % (21-46); MONOCYTES ABSOLUTE AUTO 0.56 K/mm3 (0.16-1.47); MONOCYTES PERCENT AUTO 8 % (4-13); Mean Corpuscular HGB 33.6 pg (26.0-34.0); Mean Corpuscular HGB Conc 35.7 g/dL (31.5-36.5); Mean Corpuscular Volume 94 fL (80-100); Mean Platelet Volume 9.8 fL (9.1-12.4); NEUTROPHILS ABSOLUTE AUTO 5.58 K/mm3 (1.96-9.15); NEUTROPHILS PERCENT AUTO 80 % (41-73); Platelet Count 148 K/mm3 (150-400); RDW Coefficient Variation 13.8 % (11.7-14.2); RDW Standard Deviation 47.3 fL (35.1-46.3); White Blood Cell Count 6.95 K/mm3 (4.00-11.30)
[2023-12-29 04:41] LABS: Albumin, Blood 2.7 g/dL (3.4-5.0); Albumin/Globulin Ratio 0.9 (0.8-1.8); Bilirubin, Total 0.7 mg/dL (0.1-1.0); Bun/Creatinine Ratio 36.5 (12.0-20.0); Calcium, Blood 9.2 mg/dL (8.5-10.1); Creatinine, Blood 0.66 mg/dL (0.40-1.00); Globulin, Blood 3.1 g/dL (2.2-4.0); International Normalized Ratio 1.88; Phosphorus, Blood 1.9 mg/dL (2.5-4.9); Potassium, Blood 4.1 mmol/L (3.5-5.5); Prothrombin Time Results 19.2 Sec (9.7-11.5); Total Protein, Blood 5.8 g/dL (6.4-8.2)
[2023-12-29] MEDS ORDERED: Sodium Phosphate 30 MM in Dextrose 5% 500 ML IV ONE (06:05)
--- NOTE | 2023-12-29 06:25 | NUR ---
SHIFT SUMMARY PT MORE AWAKE THIS AM. ORIENTED TO SELF ONLY. PT IS TREMULOUS THIS MORNING. CONTINUES TO BE TACHYPNEIC WITH SHALLOW RESPIRATIONS. RA SATS STABLE. FREQUENT MOIST, NON-PRODUCTIVE COUGH NOTED. AFIB, RATES 70s-120s DURING SHIFT. LOPRESSOR 5MG IV GIVEN X 2 DOSES WHEN RATE >110. ALSO MEDICATED WITH HYDRALAZINE 10MG IV X 1 DOSE FOR HYPERTENSION. TOLERATED SIPS OF WATER, BUT REQUIRES FREQUENT REMINDERS TO DRINK SLOWLY. MOUTH IS DRY- ORAL CARE DONE. PT GRIMACES WITH ORAL CARE AND STATES THAT HER TEETH ARE SORE. DENIES OTHER PAIN, BUT DOES GRIMACE AND PULL FEET AWAY WHEN TOUCHED. BLE DRSGS C/D/I AT THIS TIME. RUIZ PATENT AND DRAINING TO GRAVITY. LEFT IJ CENTRAL LINE WITH DRSG C/D/I. PHOSPHOROUS LEVEL IS LOW- MD AWARE AND PHOSPHOROUS REPLACEMENT ORDERED. PLAN OF CARE ONGOING.
[2023-12-29] MEDS ORDERED: LORazepam 0.5 MG Tab PO PRN (07:55)
[2023-12-29] MEDS ORDERED: Sertraline HCl 50 MG Tab PO SCH (09:00)
[2023-12-29] MEDS ORDERED: Metoprolol Succinate 25 MG TABCR PO SCH (09:00)
--- NOTE | 2023-12-29 09:00 | NUR ---
AM NOTE... ASSUMED CARE OF PT AT 0700, PT IS A&O TO SELF ONLY AT THIS TIME. PT'S BREATHS ARE LABORED WITH RR IN THE HIGH 30'S TO 40'S, PT IS VERY ANXIOUS. L/S HAVE SCATTERED WHEEZES T/O, SHE IS ON RA WITH O2 SATS>92%. PT IS IN AFIB IN THE 100'S-140'S BP IS STABLE WITH MAPS>65 AND SBPs IN THE 130'S-150'S. BT PRESENT AND HYPOACTIVE, ABD IS SOFT AND NONTENDER TO PALPATION. THE PT'S LLE WOUND IS COVERED BUT THE ESCHAR IS STARTING TO OPEN IN SOME AREAS. PULSES ARE FOUND BILATERALLY WITH PALPATION. THE PT'S BLE HAVE SLIGHTLY INCREASED MOTTLING UP TO HER MID THIGHS. THE PT IS C/O OF PAIN TO HER BLE BUT IS UNABLE TO ARTICULATE A NUMBER ON THE PAIN SCALE. PT'S TEMP RUIZ IS PATENT AND DRAINING TO GRAVITY PT HAS A LOW GRADE TEMP IN THE 99'S. THE PROVIDER WAS NOTIFIED OF THE INCREASED HEART RATE, CONFUSION AND WORK OF BREATING. NEW ORDERS WERE GIVEN FOR RATE CONTROL MEDS, THESE WERE GIVEN, APROX 1HR LATER THE PT'S HR IMPROVED TO THE 80'S-90'S. ONCE HER HEART RATE WAS CONTROLLED THIS RN NOTED THE PT'S WORK OF BREATHING AND MENTATION IMPROVED. ST CONSULT PLACED D/T CONCERNS WITH THE PT NEEDING TO SWALLOW 3 TIMES FOR A TEASPOON OF WATER, OCC COUGHING WAS NOTED AFTER SOME SIPS OF WATER BUT NOT EVERY TIME. WILL CONTINUE TO MONITOR.
[2023-12-29] MEDS ORDERED: Acetaminophen 325 MG TABLET PO PRN (12:25)
[2023-12-29] MEDS ORDERED: OxyCODONE HCL 5 MG TAB PO ONE (14:00)
[2023-12-29] MEDS ORDERED: OxyCODONE HCL 5 MG TAB PO PRN (14:00)
[2023-12-29] MEDS ORDERED: Warfarin Sodium 5 MG Tab PO ONE (18:00)
--- NOTE | 2023-12-29 18:16 | NUR ---
SHIFT SUMMARY PT A&OX2-3. ABLE TO HAVE APPROPRIATE CONVERSATION WITH STAFF. PT EXPRESSED CONCERNS OF BEING SUSPICIOUS OF STAFF "USING HER FOR THINGS". I BEGAN TO THOROUGHLY EXPLAIN TASKS I WAS PERFORMING AND SHE EXPRESSED COMFORT IN THAT AND WAS ABLE TO CALM DOWN. SHE WAS VERY PLEASANT FROM THAT POINT. ON ROOM AIR, SATS IN THE 90'S. ON CONTINUOUS MANAGER SERVICE DESK, AFIB HR IN THE 80'S SINCE STARTING METOPROLOL. DENIES CP. TOLERATING PO INTAKE, ATE LUNCH AND DINNER WITH ASSISTANCE. WATER BY THE SPOONFULS AND PILLS IN APPLESAUCE HAS BEEN SUCCESSFUL THIS SHIFT. RUIZ IS PATENT AND DRAINING TO GRAVITY. LIJ DRESSING C/D/I. PAIN HAS BEEN MANAGED PER EMAR WITH RELIEF. WOUND DRESSING CHANGED THIS SHITF. PT UP IN BED WATCHING TV WITH CALL LIGHT IN REACH.
--- NOTE | 2023-12-29 22:04 | NUR ---
PT HYPERTENSIVE W/SYSTOLIC 170-200, DIASTOLIC 100-130S. PT DENIES CHEST PAIN. AFIB ON THE EXCEPTIONAL CHILDREN TEACHER, RATE VARIABLE 90-120S. MEDICATED PER EMAR FOR LEG PAIN AND ANXIETY. ALSO GIVEN IV LOPRESSOR. NOTIFIED TAVIA, ORDERS FOR LABETOLOL GIVEN.
[2023-12-29] MEDS ORDERED: Labetalol HCL 5 MG/ML 4ML Injection (Single Dose) IV PRN (22:05)
[2023-12-29 23:49] LABS: Vancomycin, Trough 30.4 ug/mL (5.0-10.0)
[2023-12-30] VITALS (22 sets, daily range): BP systolic 101–205; BP diastolic 76–153
[2023-12-30] MEDS ORDERED: HydrALAZINE HCl 20 MG / ML 1ML Vial IV PRN (01:00)
[2023-12-30 06:28] LABS: BASOPHILS ABSOLUTE AUTO 0.01 K/mm3 (0.00-0.23); BASOPHILS PERCENT AUTO 0 % (0-2); EOSINOPHILS ABSOLUTE AUTO 0.02 K/mm3 (0.00-0.68); EOSINOPHILS PERCENT AUTO 0 % (0-6); Hematocrit 35.6 % (33.0-51.0); Hemoglobin 12.6 g/dL (11.5-16.0); IMMATURE GRAN ABSOLUTE AUTO 0.21 K/mm3 (0.00-0.10); IMMATURE GRAN PERCENT AUTO 3 % (0-1); LYMPHOCYTES PERCENT AUTO 14 % (21-46); MONOCYTES ABSOLUTE AUTO 0.54 K/mm3 (0.16-1.47); MONOCYTES PERCENT AUTO 7 % (4-13); Mean Corpuscular HGB 33.7 pg (26.0-34.0); Mean Corpuscular HGB Conc 35.4 g/dL (31.5-36.5); Mean Corpuscular Volume 95 fL (80-100); Mean Platelet Volume 9.6 fL (9.1-12.4); NEUTROPHILS ABSOLUTE AUTO 5.65 K/mm3 (1.96-9.15); NEUTROPHILS PERCENT AUTO 76 % (41-73); Platelet Count 152 K/mm3 (150-400); RDW Coefficient Variation 14.2 % (11.7-14.2); RDW Standard Deviation 49.2 fL (35.1-46.3); Red Blood Cell Count 3.74 M/mm3 (3.80-5.20); White Blood Cell Count 7.43 K/mm3 (4.00-11.30)
[2023-12-30 06:49] LABS: Creatinine, Blood 0.77 mg/dL (0.40-1.00); Phosphorus, Blood 2.4 mg/dL (2.5-4.9); Potassium, Blood 3.9 mmol/L (3.5-5.5)
[2023-12-30 07:33] LABS: International Normalized Ratio 4.38
--- NOTE | 2023-12-30 07:45 | NUR ---
INITIAL ASSESSMENT: Patient is awake and oriented to self only. She denies pain at this time. She is in A-Fib in the 90s-low 100s. She is hypertensive this morning with her SBP in the 200s. Call placed to hospitalist to get home medications reordered, see new orders. AM meds given at this time whole with a sip of water. LS DIM with EXP wheezes noted on the right side. She has a coarse NPC, she is high 90s on RA. BT+, she is unable to tell me when her last BM was. She has a right groin site with opsite dressing CDI with scant oozing noted. She has a non-adherent dressing to her LLE secured with mefix tape. She has mottling up to her lower thigh and on her arms. She is set up for breakfast. She denies other needs at this time. Call light in reach.
[2023-12-30] MEDS ORDERED: Sacubitril/Valsartan 24 MG-26 MG Tab PO SCH ×2 (08:00→09:00)
[2023-12-30] MEDS ORDERED: Metoprolol Succinate 25 MG TABCR PO ONE (08:50)
[2023-12-30] MEDS ORDERED: Metoprolol Succinate 50 MG TABCR PO ONE (08:55)
[2023-12-30] MEDS ORDERED: Losartan Potassium 25 MG Tab PO SCH (09:00)
[2023-12-30] MEDS ORDERED: Metoprolol Succinate 50 MG TABCR PO SCH (09:00)
[2023-12-30] MEDS ORDERED: Vancomycin HCL 1,500 MG in NS 250 ML IV SCH (12:00)
--- NOTE | 2023-12-30 12:00 | NUR ---
Update: Central line removed and arreola cath removed. Patient was given a bed bath and then was able to transfer to the recliner with a 2PA, she was able to bear weight she just needed verbal redirection with transfer. Blood pressure is better after am meds given, 130s SBP. She is starting to C/O pain in her LLE, Tylenol and Oxycodone given. She denies other needs at this time. at the bedside to assist with feeding lunch. airplane woodworker at the bedside to discuss DC plan with . Patient and deny other needs at this time. Call light in reach.
[2023-12-30] MEDS ORDERED: AmLODIPine Besylate 5 MG Tab PO ONE (17:50)
--- NOTE | 2023-12-30 18:15 | NUR ---
Summary: Patient has been alert and oriented x2 T/O the shift, she is self aware that she is not fully oriented. She has been sleeping/resting for the majority of the shift. She C/O pain in her LLE and was medicated with Tylenol and Oxycodone once this shift. She has been in A-Fib T/O the shift, all of her BP medications were switched to her home PO meds. Her blood pressure was well controlled with an SBP down into the 130s, this afternoon it slowly leslie to 180s-190s. Call placed to the MD, one time dose of Norvasc given, will reassess. LS have been DIM with some intermittent wheezing her oxygen saturations have been in the high 90s on RA. BT+, she has not had a BM since admission. She has had poor PO intake this shift, eating 5% of all meals and taking sips of supplements. Myrick was removed, she attempted to use the BSC and was not able to void. BS shows 250 cc, will attempt BSC again. She got OOB to the recliner and has been there for the majority of the day, she was able to work with PT/OT. She still has SNF recommendations, awaiting insurance authorization.
--- NOTE | 2023-12-30 19:30 | NUR ---
ASSUMPTION OF CARE ASSUMED CARE OF PATIENT AT 1900, BEDSIDE SHIFT REPORT RECEIVED FROM [facility] RN. PT RESTING IN BED, ALERT ORIENTED TO SELF. PT CONFUSED, MAKES NONSENSICLE QUESTIONS. PT FOLLOWS DIRECTION WHEN PROMPTED, MOVES EXTREMITIES EQUALLY BILATERALLY. HR 70-90'S AFIB, PT HYPERTENSIVE, SBP 150-170'S. PT DENIES CP/PRESSURE. PT ON RA, OXYGEN SATURATION >95%. ABDOMEN SOFT, BOWEL TONES ACTIVE IN ALL FOUR QUADRANTS, PT DENIES N/V. PT RUIZ REMOVED ON NO URINE OUTPUT SINCE RUIZ REMOVAL. PT DENIES URGE TO VOID. PIV IN PLACE TO LAC SL. PT WITH ULCERS PRESENT TO BILATERAL LOWER EXTREMITIES. RIGHT LEG CLEANED AND DRESSED, LEFT LEG DRESSED ON PREVIOUS SHIFT. BED IN LOWEST POSITION, CALL LIGHT WITHIN REACH, CARE CONTINUES.
[2023-12-31] VITALS (11 sets, daily range): BP systolic 117–193; BP diastolic 69–155
[2023-12-31 03:50] LABS: BASOPHILS ABSOLUTE AUTO 0.02 K/mm3 (0.00-0.23); BASOPHILS PERCENT AUTO 0 % (0-2); EOSINOPHILS ABSOLUTE AUTO 0.02 K/mm3 (0.00-0.68); EOSINOPHILS PERCENT AUTO 0 % (0-6); Hematocrit 36.1 % (33.0-51.0); Hemoglobin 12.7 g/dL (11.5-16.0); IMMATURE GRAN ABSOLUTE AUTO 0.13 K/mm3 (0.00-0.10); IMMATURE GRAN PERCENT AUTO 2 % (0-1); LYMPHOCYTES ABSOLUTE AUTO 0.86 K/mm3 (0.84-5.20); LYMPHOCYTES PERCENT AUTO 12 % (21-46); MONOCYTES ABSOLUTE AUTO 0.59 K/mm3 (0.16-1.47); MONOCYTES PERCENT AUTO 8 % (4-13); Mean Corpuscular HGB 33.9 pg (26.0-34.0); Mean Corpuscular HGB Conc 35.2 g/dL (31.5-36.5); Mean Corpuscular Volume 96 fL (80-100); Mean Platelet Volume 9.8 fL (9.1-12.4); NEUTROPHILS ABSOLUTE AUTO 5.39 K/mm3 (1.96-9.15); NEUTROPHILS PERCENT AUTO 77 % (41-73); Platelet Count 168 K/mm3 (150-400); RDW Coefficient Variation 14.6 % (11.7-14.2); RDW Standard Deviation 50.9 fL (35.1-46.3); Red Blood Cell Count 3.75 M/mm3 (3.80-5.20); White Blood Cell Count 7.01 K/mm3 (4.00-11.30)
[2023-12-31 04:16] LABS: Prothrombin Time Results 81.4 Sec (9.7-11.5)
[2023-12-31 04:17] LABS: Albumin, Blood 2.7 g/dL (3.4-5.0); Albumin/Globulin Ratio 0.9 (0.8-1.8); Bilirubin, Total 0.6 mg/dL (0.1-1.0); Bun/Creatinine Ratio 51.5 (12.0-20.0); Calcium, Blood 9.2 mg/dL (8.5-10.1); Creatinine, Blood 0.7 mg/dL (0.40-1.00); Magnesium, Blood 1.9 mg/dL (1.6-2.4); Phosphorus, Blood 2.2 mg/dL (2.5-4.9); Potassium, Blood 4.1 mmol/L (3.5-5.5); Total Protein, Blood 5.7 g/dL (6.4-8.2)
[2023-12-31 04:49] LABS: International Normalized Ratio 8.95
[2023-12-31] MEDS ORDERED: Sodium Phosphate 20 MM in Dextrose 5% 500 ML IV ONE (05:35)
--- NOTE | 2023-12-31 05:40 | NUR ---
TRANSFER TO PCU REPORT GIVEN TO PCU JOSEPH. PT TRANSFERED TO PCU 11 VIA WHEELCHAIR. PT TRANSFERED TO PCU BED VIA SBA ASSIST WITH WALKER. PT REMAINS ALERT, VITAL SIGNS STABLE. ALL PERSONAL BELONGINGS TRANSFERED WITH PT.
--- NOTE | 2023-12-31 06:45 | NUR ---
0528 PT ARRIVED BY W/C TO ROOM. PT WAS 2 ASSIST TO STAND BUT SBA WITH WALKER ONCE STANDING. PT AOX3, PLEASANT AND COOPERATIVE. PT IS IVSL AT THIS TIME. VITAL SIGNS TAKEN. PT ORIENTED TO CALL LIGHT AND TO ROOM, PT ABLE TO USE CALL LIGHT APPROPRIATELY. PT HAS LEFT NECK BANDAGED WHERE CENTRAL LINE WAS D/C'D. PT ABLE TO VOID IN ICU ON BSC. RT GROIN SITE INTACT.
[2023-12-31] MEDS ORDERED: Metoprolol Succinate 25 MG TABCR PO SCH (09:00)
[2023-12-31] MEDS ORDERED: Lidocaine 2% Viscous Soln 20 ML,Nystatin 100,000 Unit/ml Susp 20 ML,Mag Hydrox/Al Hydro... MT SCH (12:30)
[2023-12-31] MEDS ORDERED: HydrALAZINE HCl 20 MG / ML 1ML Vial IV PRN (12:50)
[2023-12-31 12:51] LABS: Prothrombin Time Results >90.0 Sec (9.7-11.5)
[2023-12-31 12:53] LABS: International Normalized Ratio >10.00
[2023-12-31] MEDS ORDERED: AmLODIPine Besylate 5 MG Tab PO SCH ×2 (13:30→21:00)
[2023-12-31] MEDS ORDERED: Phytonadione 5 MG Tab PO ONE (17:00)
--- NOTE | 2023-12-31 17:49 | NUR ---
SHIFT SUMMARY PT A&Ox3, MOMENTS OF CONFUSION, COMMUNICATES NEEDS APPROPRIATELY BUT DOES NOT USE CALL LIGHT TO INITIATE CARE. BP ELEVATED AND ASYMPTOMATIC, DISCUSSED THROUGHOUT SHIFT WITH PHYSICIAN - ORDERS PLACED, SBP 150'S AT THIS TIME. AFIB 80-100's, DENIES CP/PRESSURE. SpO2> 92% RA, DENIES SOB. 1-2 ASSIST TO BSC/CHAIR, CONTINENT OF URINE, NO BM THIS SHIFT. PT HAD POOR PO INTAKE BUT PT FELT THAT IT WAS IMPROVED FROM YESTERDAY. BLE DRESSINGS CHANGED, WOUND CARE PROVIDED. INR >10, NO S/S OF BLEEDING. DENIED PAIN. NO OTHER EVENTS, WILL REPORT TO ONCOMING RN.
[2024-01-01 04:16] LABS: BASOPHILS ABSOLUTE AUTO 0.01 K/mm3 (0.00-0.23); BASOPHILS PERCENT AUTO 0 % (0-2); EOSINOPHILS ABSOLUTE AUTO 0.02 K/mm3 (0.00-0.68); EOSINOPHILS PERCENT AUTO 0 % (0-6); Hematocrit 34.6 % (33.0-51.0); Hemoglobin 12.3 g/dL (11.5-16.0); IMMATURE GRAN ABSOLUTE AUTO 0.11 K/mm3 (0.00-0.10); IMMATURE GRAN PERCENT AUTO 2 % (0-1); LYMPHOCYTES ABSOLUTE AUTO 0.72 K/mm3 (0.84-5.20); LYMPHOCYTES PERCENT AUTO 12 % (21-46); MONOCYTES ABSOLUTE AUTO 0.54 K/mm3 (0.16-1.47); MONOCYTES PERCENT AUTO 9 % (4-13); Mean Corpuscular HGB 33.6 pg (26.0-34.0); Mean Corpuscular HGB Conc 35.5 g/dL (31.5-36.5); Mean Corpuscular Volume 95 fL (80-100); Mean Platelet Volume 9.3 fL (9.1-12.4); NEUTROPHILS ABSOLUTE AUTO 4.78 K/mm3 (1.96-9.15); NEUTROPHILS PERCENT AUTO 77 % (41-73); Platelet Count 163 K/mm3 (150-400); RDW Coefficient Variation 13.9 % (11.7-14.2); RDW Standard Deviation 48.2 fL (35.1-46.3); Red Blood Cell Count 3.66 M/mm3 (3.80-5.20); White Blood Cell Count 6.18 K/mm3 (4.00-11.30)
[2024-01-01 04:37] LABS: International Normalized Ratio 2.61
[2024-01-01 04:46] VITALS: BP 153/85
[2024-01-01 04:58] LABS: Albumin, Blood 2.7 g/dL (3.4-5.0); Albumin/Globulin Ratio 0.9 (0.8-1.8); Bilirubin, Total 0.7 mg/dL (0.1-1.0); Bun/Creatinine Ratio 46.8 (12.0-20.0); Creatinine, Blood 0.62 mg/dL (0.40-1.00); Globulin, Blood 3.1 g/dL (2.2-4.0); Potassium, Blood 3.8 mmol/L (3.5-5.5); Total Protein, Blood 5.8 g/dL (6.4-8.2)
--- NOTE | 2024-01-01 06:48 | NUR ---
PT STABLE THROUGHOUT THE SHIFT. VITAL SIGNS REMAINED WITHIN PARAMETERS. WOUND CARE DONE TO B/L LEGS. PT 1 ASSIST TO BSC WITH WALKER AND URINATED X2. PT HAD GOOD URINARY OUTPUT. PT TOLERATED IV ABX WELL. PT STATES SHE "FEELS MORE ALERT THAN GOD[place] BEEN IN DAYS." PT ABLE TO SWALLOW PILLS ONE AT AT TIME WITH WATER. PT CONTINUES TO ENDORSE MOUTH/THROAT PAIN WHICH IS HELPED BY TOPICAL MEDICATION. PT WAS MEDICATED FOR PAIN WITH ACETAMINOPHEN X1 WITH GOOD RELIEF.
[2024-01-01 08:03] VITALS: BP 169/121
--- NOTE | 2024-01-01 08:04 | NUR ---
Sitting up in chair, eating breakfast. Blood pressure checked three times for accuracy. She is having very slight tremors and weakness of BUE. STates that she feels tremulous "on the inside". Alert, oriented to person, place and ongoing events, but not to date.
--- NOTE | 2024-01-01 08:44 | NUR ---
Resident rounded at this time, updated on pt condition, 2 5-beat runs of Vtach while sleeping, and plan for barium swallow study today at 1045am. Pt ate breakfast well, states that she is eating even though she doesn't really have a great appetite. Spoke with biostatistics manager and updated her on pt condition. Pt took all her oral meds whole with applesauce, except the probiotic which was large. this was opened and sprinkled on applesauce. Pt was sitting up in chair, and had no difficulties with p.o. intake.
--- NOTE | 2024-01-01 10:45 | NUR ---
PT down to imaging by wheelchair for barium swallow study. Pt was asleep in the chair when I entered the room to administer IV thiamine and do the dressing changes to her leg wound. She was having some trouble staying awake at 1030. Transporter arrived, pt was re-awakened before dressing changes started. Pt able to stand independently, stated she remembered that she was having the swallow study, but said she felt "odd". Denied dizzyness/lightheadness. Gait belt on. Pt turned and tranfered to the wheelchair without assistance more than verbal directions. water pollution control technician notified of transport.
[2024-01-01] MEDS ORDERED: Sacubitril/Valsartan 24 MG-26 MG Tab PO ONE (12:00)
[2024-01-01] MEDS ORDERED: Metoprolol Succinate 25 MG TABCR PO ONE (12:00)
[2024-01-01 12:13] LABS: Vancomycin, Trough 15.4 ug/mL (5.0-10.0)
[2024-01-01 12:16] VITALS: BP 203/92
--- NOTE | 2024-01-01 12:51 | NUR ---
Dressings removed and changed on BLE. Pt tolerated it well. Applied prescribed ointment and covered with Alevyn dressings. Avinash is at the bedside, pleasantly conversant with staff and the patient.
--- NOTE | 2024-01-01 15:16 | NUR ---
Pt did salt water rinse in her mouth for stomatitis; states not too painful, so additional supplies provided for her to do this independently. is at the bedside. Noted blood pressure is slowly normalizing.
--- NOTE | 2024-01-01 17:58 | NUR ---
Pt nauseated; given zofran for relief.
[2024-01-01] MEDS ORDERED: Sacubitril/Valsartan 49 MG/51 MG Tab PO SCH (18:00)
[2024-01-01] MEDS ORDERED: Warfarin Sodium 5 MG Tab PO ONE (18:00)
--- NOTE | 2024-01-01 18:28 | NUR ---
Pt states her nausea is unresolved; opted to wait a little longer on scheduled p.o. medications this evening.
[2024-01-01 20:04] VITALS: BP 155/91
[2024-01-01 23:52] VITALS: BP 151/87
[2024-01-01 23:54] VITALS: BP 151/87
[2024-01-02 04:29] LABS: BASOPHILS ABSOLUTE AUTO 0.01 K/mm3 (0.00-0.23); BASOPHILS PERCENT AUTO 0 % (0-2); EOSINOPHILS ABSOLUTE AUTO 0.01 K/mm3 (0.00-0.68); EOSINOPHILS PERCENT AUTO 0 % (0-6); Hematocrit 40.3 % (33.0-51.0); IMMATURE GRAN ABSOLUTE AUTO 0.07 K/mm3 (0.00-0.10); IMMATURE GRAN PERCENT AUTO 1 % (0-1); LYMPHOCYTES ABSOLUTE AUTO 0.98 K/mm3 (0.84-5.20); LYMPHOCYTES PERCENT AUTO 16 % (21-46); MONOCYTES ABSOLUTE AUTO 0.58 K/mm3 (0.16-1.47); MONOCYTES PERCENT AUTO 10 % (4-13); Mean Corpuscular HGB 33.2 pg (26.0-34.0); Mean Corpuscular HGB Conc 34.7 g/dL (31.5-36.5); Mean Corpuscular Volume 96 fL (80-100); Mean Platelet Volume 9.3 fL (9.1-12.4); NEUTROPHILS ABSOLUTE AUTO 4.47 K/mm3 (1.96-9.15); NEUTROPHILS PERCENT AUTO 73 % (41-73); Platelet Count 195 K/mm3 (150-400); RDW Standard Deviation 48.9 fL (35.1-46.3); Red Blood Cell Count 4.22 M/mm3 (3.80-5.20); White Blood Cell Count 6.12 K/mm3 (4.00-11.30)
[2024-01-02 04:33] VITALS: BP 156/108
[2024-01-02 04:41] LABS: International Normalized Ratio 1.2; Prothrombin Time Results 12.7 Sec (9.7-11.5)
[2024-01-02 05:00] LABS: Albumin, Blood 3.2 g/dL (3.4-5.0); Bilirubin, Total 0.7 mg/dL (0.1-1.0); Bun/Creatinine Ratio 35.4 (12.0-20.0); Calcium, Blood 9.5 mg/dL (8.5-10.1); Creatinine, Blood 0.65 mg/dL (0.40-1.00); Globulin, Blood 3.3 g/dL (2.2-4.0); Magnesium, Blood 1.7 mg/dL (1.6-2.4); Potassium, Blood 3.6 mmol/L (3.5-5.5); Total Protein, Blood 6.5 g/dL (6.4-8.2)
--- NOTE | 2024-01-02 05:09 | NUR ---
SHIFT SUMMARY ASSUMED CARE OF PT AT 1900. PT IS A/OX4. HEART SOUNDS REGULAR. LUNG SOUNDS HAVE CRACKLES AT BASES. PT COUGHING WITHOUT PRODUCING MUCUS. PT EDUCAED ABOUT THICKENED LIQUIDS. PT WAS CONTINENT/ INCONTINENT OF URINE. PT WAS A 1P SBA WITH WALKER TO BSC. PT WAS RESITING WITH EYES CLOSED MOST OF THE NOC.
[2024-01-02 07:34] VITALS: BP 149/95
[2024-01-02] MEDS ORDERED: Metoprolol Succinate 50 MG TABCR PO SCH (08:00)
[2024-01-02 09:48] VITALS: BP 131/72
[2024-01-02 12:20] VITALS: BP 135/87
--- NOTE | 2024-01-02 12:21 | NUR ---
WOUND CARE COMPLETED PER ORDER, BY SERVICES TECH.
[2024-01-02 16:00] VITALS: BP 146/95
[2024-01-02 16:50] LABS: SARS-Cov-2 (COVID-19) PCR, MMC NEGATIVE (NEGATIVE)
--- NOTE | 2024-01-02 17:35 | NUR ---
SHIFT SUMMARY THE PT IS A&OX4, CALLS APPROPRIATELY, MAKES HER NEEDS KNOWN, IS A 1P ASSIST W/ FWW, AND HAS BEEN UP IN THE CHAIR MAJORITY OF THE SHIFT. SHE HAS BEEN ON RA W/ SP02 >90%, ON TELE HE HAS BEEN AFIB 80'S-90'S W/ A BBB. HER BP HAS BEEN STABLE. THE PT HAD WOUND CARE COMPLETED ON BLE THIS MORNING PER ORDERS. HER FAMILY HAS BEEN AT THE BEDSIDE AND HAS BEEN UPDATED ON CARE. THE PT WILL LIKELY D/C TO [facility] 01/02. HER COVID SWAB CAME BACK NEGATIVE, NO ACCUTE EVENTS. SEE NOTES FOR ANY UPDATES.
[2024-01-02] MEDS ORDERED: Warfarin Sodium 5 MG Tab PO SCH (18:00)
[2024-01-02 20:00] VITALS: BP 151/91
--- NOTE | 2024-01-02 20:00 | NUR ---
ASSUMED CARE OF PT AT 1900. REPORT RECEIVED AT BEDSIDE. PT PARTICIPATES IN BEDSIDE REPORT. PT ALERT AND ORIENTED. PLEASANT AND COOPERATIVE WITH CARE AND ASSESSMENT. WILL DO BILATERAL DRESSING CHANGES TO LOWER EXTREMITIES THIS EVENING. PT MADE AWARE, AND IS IN AGREEMENT. WILL REVIEW CHART AND PLAN OF CARE FOR THIS PT.
[2024-01-02] MEDS ORDERED: DEXTROMETHORPHAN/BENZOCAINE 1 EACH LOZENGE MT PRN (23:50)
--- NOTE | 2024-01-02 23:59 | NUR ---
DRESSING CHANGES DONE TO LOWER EXTREMITIES. RIGHT LATERAL LOWER EXTREMITIES WITH WHAT COULD BE DESCRIBED A VENOUS STASIS ULCER. PT STATES THAT SHE HAS HAD WOUNDS FOR OVER TWO YEARS. DRESSING REMOVED. NO BLEEDING NOTED. CLEANSED GENTLY WITH WOUND CLEANSER AND NORMAL SALINE. GENTLY PAT DRIED. SILVADINE OINTMENT APPLIED. COVERED WOUND WITH ABD PAD. SECURED WITH 4 INCH KERLEX WRAP. DID APPLY EFREN BANDAGE TO EXTREMITY TO HELP REDUCE EDEMAT WITH ASCENDING WRAPS. TEACHING DONE WITH PT ON RATIONALE. SHE TOLERATES THIS WELL. TO THE LEFT LOWER EXTREMITY, THERE ARE STASIS ULCER MEDIALLY AND LATERALLY. MEDIAL WOUND LESS INVOLVED. ESCHAR NOTED TO WOUND BASE IN APPROX 40 PERCENT OF WOUND BED. EDGES ATTACHED. CLEANSED AND DRESSED ABOVE WITH ONE ABD PAD ENCOMPASSING BOTH WOUNDS. LATERAL WOUND LARGER IN SIZE. ESCHAR ALSO IN WOUND AT APPROX 50 PERCENT. NO BLEEDING. NO NOTED GRANULATION IN ANY OF THE WOUND BEDS. CLEANED AND DRESSED ABOVE. SECURED WITH 4 INCH KERLEX, AND THEN EFREN WRAP IN ASCENDING FASHION. WILL CONTINUE TO MONITOR. PT STATES THAT THESE DRESSINGS ARE COMFORTABLE AT THIS TIME.
[2024-01-03] VITALS: BP 175/94
[2024-01-03 01:56] VITALS: BP 138/86
[2024-01-03 04:00] VITALS: BP 161/92
[2024-01-03 04:37] LABS: BASOPHILS PERCENT AUTO 0 % (0-2); EOSINOPHILS ABSOLUTE AUTO 0.11 K/mm3 (0.00-0.68); EOSINOPHILS PERCENT AUTO 2 % (0-6); Hematocrit 38.6 % (33.0-51.0); Hemoglobin 13.3 g/dL (11.5-16.0); IMMATURE GRAN ABSOLUTE AUTO 0.06 K/mm3 (0.00-0.10); IMMATURE GRAN PERCENT AUTO 1 % (0-1); LYMPHOCYTES ABSOLUTE AUTO 0.96 K/mm3 (0.84-5.20); LYMPHOCYTES PERCENT AUTO 15 % (21-46); MONOCYTES ABSOLUTE AUTO 0.53 K/mm3 (0.16-1.47); MONOCYTES PERCENT AUTO 8 % (4-13); Mean Corpuscular HGB 33.2 pg (26.0-34.0); Mean Corpuscular HGB Conc 34.5 g/dL (31.5-36.5); Mean Corpuscular Volume 96 fL (80-100); Mean Platelet Volume 9.4 fL (9.1-12.4); NEUTROPHILS ABSOLUTE AUTO 4.78 K/mm3 (1.96-9.15); NEUTROPHILS PERCENT AUTO 74 % (41-73); Platelet Count 198 K/mm3 (150-400); RDW Coefficient Variation 13.8 % (11.7-14.2); Red Blood Cell Count 4.01 M/mm3 (3.80-5.20); White Blood Cell Count 6.44 K/mm3 (4.00-11.30)
[2024-01-03 04:52] LABS: International Normalized Ratio 1.77; Prothrombin Time Results 18.2 Sec (9.7-11.5)
[2024-01-03 05:07] LABS: Bun/Creatinine Ratio 31.3 (12.0-20.0); Calcium, Blood 8.8 mg/dL (8.5-10.1); Creatinine, Blood 0.64 mg/dL (0.40-1.00); Potassium, Blood 3.3 mmol/L (3.5-5.5)
--- NOTE | 2024-01-03 05:57 | NUR ---
HAVE REMOVED EFREN WRAPS FROM PT'S LOWER EXTREMITIES. EDEMA DIMINISHED WELL. PT STATES THAT IT BEGAN TO GET "ITCHY" IN LOWER EXTREMITIES. MEDICATED PT WITH OXYCODONE 5 MG PO THIS AM. NO FURTHER COMPLAINTS OF PAIN IN LEGS OR THROAT. WILL CONTINUE TO MONITOR PT, AND WILL REPORT OFF TO ONCOMING RN.
[2024-01-03 07:26] VITALS: BP 162/91
[2024-01-03] MEDS ORDERED: Magnesium Sulf 2 GM/Water 50ML 50 ML IV ONE (07:45)
[2024-01-03] MEDS ORDERED: Potassium Chloride 20 MEQ TabCR PO ONE (08:00)
--- NOTE | 2024-01-03 08:02 | NUR ---
Spoke with Dr. Curran after unsuccessful attempt to reach Dr. Tobar, resident. Pt is ok to discharge to SNF as planned, after the administration of Magnesium as ordered this morning.
[2024-01-03] MEDS ORDERED: Ipratropium/Albuterol SulF 2.5-0.5MG/3 ML Amp INH SCH (09:10)
--- NOTE | 2024-01-03 10:00 | NUR ---
DRESSING CHANGED, SILVADENE APPLIED, COVERED IN CHICKEN SKIN
[2024-01-03 11:31] VITALS: BP 143/76
[2024-01-03] MEDS ORDERED: METO100ER PO (12:06)
[2024-01-03] MEDS ORDERED: ENTRESTO 49 MG1 EACH PO (12:07)
[2024-01-03] MEDS ORDERED: AMLO10 PO (12:08)
[2024-01-03] MEDS ORDERED: ACET325 PO (12:08)
[2024-01-03] MEDS ORDERED: JUVEN PACKET1 EAC3 PO (12:09)
[2024-01-03] MEDS ORDERED: AMOCLA875 PO (12:09)
[2024-01-03] MEDS ORDERED: DULCOLAX400 MG/51 PO (12:10)
[2024-01-03] MEDS ORDERED: DOXY100 PO (12:11)
[2024-01-03] MEDS ORDERED: B-1100 M1 PO (12:11)
[2024-01-03] MEDS ORDERED: VISBIOME 112.51 EACH PO (12:12)
--- NOTE | 2024-01-03 12:15 | NUR ---
DISCHARGE SUMMARY PT TRANSPORTED TO [facility] VIA [facility] TRANSPORT [facility]. ALL PATIENT BELONGINGS RETURNED AND DEPARTED WITH PT. IV DRESSED WITH GAUZE AND COBAN. REPORT GIVEN TO [facility] AT [facility].
[2024-01-03] MEDS ORDERED: Warfarin Sodium 5 MG Tab PO SCH (18:00)
== END 2024-01-03 12:20 | DRG 853 ==
LOC: ER 10:39 → ICUE 14:44 → ERHOLD 14:44 → PCU 17:58 → ICUE 18:11 → PCU 12-31 05:30
PROVIDERS: Family Medicine; Internal Medicine; Registered Nurse; Student in an Organized Health Care Education/Training Program; ADMIT Internal Medicine
PROC: 3E03329 Introduction of Other Anti-infective into Peripheral Vein, Percutaneous Approach (ICD-10-PCS; principal; 2023-12-26)
PROC: 047N3ZZ Dilation of Left Popliteal Artery, Percutaneous Approach (ICD-10-PCS; 2023-12-27)
PROC: 047Q3ZZ Dilation of Left Anterior Tibial Artery, Percutaneous Approach (ICD-10-PCS; 2023-12-27)
PROC: 047S3ZZ Dilation of Left Posterior Tibial Artery, Percutaneous Approach (ICD-10-PCS; 2023-12-27)
PROC: B41DZZZ Fluoroscopy of Aorta and Bilateral Lower Extremity Arteries (ICD-10-PCS; 2023-12-27)
DX: A41.9 Sepsis, unspecified organism (principal); G92.8 Other toxic encephalopathy; J18.9 Pneumonia, unspecified organism; R65.21 Severe sepsis with septic shock; J96.01 Acute respiratory failure with hypoxia; E87.1 Hypo-osmolality and hyponatremia; N17.9 Acute kidney failure, unspecified; I48.20 Chronic atrial fibrillation, unspecified; L97.829 Non-pressure chronic ulcer of other part of left lower leg with unspecified severity; E87.20 Acidosis, unspecified; L03.116 Cellulitis of left lower limb; I24.89 Other forms of acute ischemic heart disease; I42.2 Other hypertrophic cardiomyopathy; I70.248 Atherosclerosis of native arteries of left leg with ulceration of other part of lower leg; I10 Essential (primary) hypertension; F41.9 Anxiety disorder, unspecified; E87.6 Hypokalemia; E83.39 Other disorders of phosphorus metabolism; R13.10 Dysphagia, unspecified; K12.0 Recurrent oral aphthae; Z87.891 Personal history of nicotine dependence; Z79.01 Long term (current) use of anticoagulants; Z98.890 Other specified postprocedural states
CPT/HCPCS: 36415; 36556; 37228; 37232; 51702; 71045; 73701; 74230; 75625; 75716; 75774; 76937; 80048; 80053; 80069; 80202; 81001; 82140; 82570; 83605; 83735; 83930; 83935; 84100; 84145; 84300; 84484; 84540; 85025; 85610; 86140; 87040; 92526; 92610; 92611; 93005; 93010; 93306; 93922; 94640; 94664; 94760; 94762; 96365-59; 96366-59; 97110; 97163; 97166; 97530; 97535; 99152; 99153; 99285-25; A9270; C1725; C1751; C1760; C1769; C1887; C1894; J0360; J0692; J1644; J2060; J2250; J2405; J3010; J3370; J3411; J3475; J3480; J7030; J7040; J7050; J7060; J7512; Q9967; U0002

== ENCOUNTER 2024-01-07 03:33 | Emergency (ER) | payer OTHER ==
[~2024-01-07] VITALS: Ht 170.2 cm; Wt 104.3 kg
[~2024-01-07 03:33] MED LIST changes: +ACET325 PO; +AMLO10 PO; +B-1100 M1 PO; +CEPH500 PO; +DOXY100 PO; +DULCOLAX400 MG/51 PO; +ENTRESTO 24 MG1 EACH PO; +ENTRESTO 49 MG1 EACH PO; +JUVEN PACKET1 EAC3 PO; +METO100ER PO; +METO50 PO; +SERT25 PO; +SILVADENE20 G8 TOP; +WARF5 PO
[2024-01-07] MEDS ORDERED: NS 1,000 ML IV ONE (03:42)
[2024-01-07 03:50] LABS: BASOPHILS ABSOLUTE AUTO 0.04 K/mm3 (0.00-0.23); BASOPHILS PERCENT AUTO 1 % (0-2); EOSINOPHILS ABSOLUTE AUTO 0.01 K/mm3 (0.00-0.68); EOSINOPHILS PERCENT AUTO 0 % (0-6); Hematocrit 32.1 % (33.0-51.0); Hemoglobin 10.1 g/dL (11.5-16.0); IMMATURE GRAN ABSOLUTE AUTO 0.05 K/mm3 (0.00-0.10); IMMATURE GRAN PERCENT AUTO 1 % (0-1); LYMPHOCYTES ABSOLUTE AUTO 2.06 K/mm3 (0.84-5.20); LYMPHOCYTES PERCENT AUTO 24 % (21-46); MONOCYTES ABSOLUTE AUTO 0.51 K/mm3 (0.16-1.47); MONOCYTES PERCENT AUTO 6 % (4-13); Mean Corpuscular HGB 33.1 pg (26.0-34.0); Mean Corpuscular HGB Conc 31.5 g/dL (31.5-36.5); Mean Corpuscular Volume 105 fL (80-100); Mean Platelet Volume 9.8 fL (9.1-12.4); NEUTROPHILS ABSOLUTE AUTO 6.02 K/mm3 (1.96-9.15); NEUTROPHILS PERCENT AUTO 69 % (41-73); Platelet Count 191 K/mm3 (150-400); RDW Coefficient Variation 14.2 % (11.7-14.2); RDW Standard Deviation 55.3 fL (35.1-46.3); Red Blood Cell Count 3.05 M/mm3 (3.80-5.20); White Blood Cell Count 8.69 K/mm3 (4.00-11.30)
[2024-01-07] MEDS ORDERED: NS 1,000 ML IV SCH (03:50)
[2024-01-07 04:05] LABS: Calcium, Ionized (POC) 1.05 mmol/L (1.10-1.46); Chloride (POC) 100 mmol/L (98-108); Glucose (ISTAT POC) 184 mg/dL (70-99); Hemoglobin (POC) 9.2 g/dL (12.0-16.0); Potassium (POC) 4.1 mmol/L (3.5-5.5); Sodium (POC) 133 mmol/L (135-148); Total CO2 (POC) 20 mmol/L (21-32)
[2024-01-07] MEDS ORDERED: Ondansetron HCl 2 MG / ML 2ML Vial IV ONE (04:20)
[2024-01-07 04:27] LABS: Albumin, Blood 2.6 g/dL (3.4-5.0); Albumin/Globulin Ratio 0.9 (0.8-1.8); Bilirubin, Total 0.5 mg/dL (0.1-1.0); Bun/Creatinine Ratio 40.9 (12.0-20.0); Calcium, Blood 8.6 mg/dL (8.5-10.1); Creatinine, Blood 1.1 mg/dL (0.40-1.00); Globulin, Blood 2.9 g/dL (2.2-4.0); Potassium, Blood 3.9 mmol/L (3.5-5.5); Total Protein, Blood 5.5 g/dL (6.4-8.2)
[2024-01-07] MEDS ORDERED: Pantoprazole Sodium 40 MG Injection IV ONE (07:10)
[2024-01-07] MEDS ORDERED: Pantoprazole Sodium 40 MG in NS 50 ML IV SCH (07:10)
[2024-01-07 09:16] LABS: BASOPHILS ABSOLUTE AUTO 0.01 K/mm3 (0.00-0.23); BASOPHILS PERCENT AUTO 0 % (0-2); EOSINOPHILS PERCENT AUTO 0 % (0-6); Hematocrit 25.1 % (33.0-51.0); Hemoglobin 8.5 g/dL (11.5-16.0); IMMATURE GRAN ABSOLUTE AUTO 0.07 K/mm3 (0.00-0.10); IMMATURE GRAN PERCENT AUTO 1 % (0-1); LYMPHOCYTES ABSOLUTE AUTO 1.14 K/mm3 (0.84-5.20); LYMPHOCYTES PERCENT AUTO 13 % (21-46); MONOCYTES ABSOLUTE AUTO 0.31 K/mm3 (0.16-1.47); MONOCYTES PERCENT AUTO 4 % (4-13); Mean Corpuscular HGB 32.8 pg (26.0-34.0); Mean Corpuscular HGB Conc 33.9 g/dL (31.5-36.5); Mean Platelet Volume 9.5 fL (9.1-12.4); NEUTROPHILS ABSOLUTE AUTO 6.98 K/mm3 (1.96-9.15); NEUTROPHILS PERCENT AUTO 82 % (41-73); Platelet Count 204 K/mm3 (150-400); RDW Standard Deviation 49.6 fL (35.1-46.3); Red Blood Cell Count 2.59 M/mm3 (3.80-5.20); White Blood Cell Count 8.51 K/mm3 (4.00-11.30)
[2024-01-07 09:27] LABS: Mean Corpuscular Volume 97 fL (80-100)
[2024-01-07 11:35] VITALS: BP 85/68
== END 2024-01-07 12:13 | disposition short-term general hospital (02) ==
LOC: ER 03:33
PROVIDERS: Emergency Medicine
DX: K92.2 Gastrointestinal hemorrhage, unspecified (principal); D62 Acute posthemorrhagic anemia; N28.9 Disorder of kidney and ureter, unspecified; I48.91 Unspecified atrial fibrillation; I73.9 Peripheral vascular disease, unspecified; I10 Essential (primary) hypertension; F41.9 Anxiety disorder, unspecified; Z79.01 Long term (current) use of anticoagulants; Z79.899 Other long term (current) drug therapy; F17.210 Nicotine dependence, cigarettes, uncomplicated
CPT/HCPCS: 36430; 75635; 80047; 80053; 83605; 85014; 85025; 86850; 86900; 86901; 86923; 93005; 93010; 96361; 96365-59; 96366; 96375-59; 99285-25; J2405; J2470; J7030; P9016; Q9967

== ENCOUNTER 2024-04-22 02:07 | Day surgery (SDC) | payer OTHER ==
[2024-04-22] MEDS ORDERED: Lidocaine HCl 4% Cream 5 GM ONE (14:07)
== END 2024-04-22 23:00 | disposition home or self-care (01) ==
LOC: WOUND 02:07
DX: L97.822 Non-pressure chronic ulcer of other part of left lower leg with fat layer exposed (principal); I73.9 Peripheral vascular disease, unspecified; I10 Essential (primary) hypertension; Z87.891 Personal history of nicotine dependence
CPT/HCPCS: A9270; G0463

== ENCOUNTER 2024-04-28 00:41 | Day surgery (SDC) | payer OTHER | END 2024-04-28 22:54 | disposition home or self-care (01) | LOC: WOUND 00:41 | DX: L97.822 Non-pressure chronic ulcer of other part of left lower leg with fat layer exposed (principal); I73.9 Peripheral vascular disease, unspecified; I87.2 Venous insufficiency (chronic) (peripheral); R60.0 Localized edema | CPT/HCPCS: A6213; G0463 ==